=== PATIENT | female | born 1950 | race Caucasian/White ===

== ENCOUNTER 2020-08-06 11:39 | Outpatient (CLI) | payer MEDICARE, SELFPAY ==
--- NOTE | 2020-08-06 11:43 | MM_ITS ---
WS: [id number] BILATERAL DIGITAL SCREENING MAMMOGRAPHY WITH CAD CLINICAL INFORMATION: SCREENING HISTORY: Screening mammogram. No current complaints. COMPARISON: TECHNIQUE: Bilateral CC and MLO views. FINDINGS: Scattered fibroglandular densities bilaterally. A few tiny punctate calcifications right breast. No s uspicious focal mass, asymmetry, calcifications, or architectural distortion. No evidence of malignan cy. MM/[place] [id number] IMPRESSION: BI-RADS: 2-Benign FOLLOW UP: 1 Year Follow-up Recommend return to annual screening mammography.
== END 2020-08-06 11:40 | disposition home or self-care (01) ==
LOC: RADSHAW 11:42
PROVIDERS: PCP Internal Medicine; Visit Provider Internal Medicine
DX: Z12.31 Encounter for screening mammogram for malignant neoplasm of breast (principal)
CPT/HCPCS: 77067

== ENCOUNTER 2022-06-29 12:37 | Outpatient (CLI) | payer MEDICARE, SELFPAY ==
--- NOTE | 2022-06-29 12:55 | XR_ITS ---
WS: [id number] SCREENING DEXA SCAN Rösler miniDaT CLINICAL INFORMATION: OSTEOPOROSIS SCREENING COMPARISON: None. FINDINGS: The L1-L4 bone mineral density measures 1.186 g/cm2. This corresponds to a T score score of 0.0 and Z score of 2.2. Left femoral neck bone mineral density measures 1.001 g/cm2. This corresponds to a T score of -0.1 an d Z score of 1.9. Right femoral neck bone mineral density measures 0.931 g/cm2. This corresponds to a T score -0.6of an d Z score of 1.3. Mean femoral neck bone mineral density measures 0.966 g/cm2. This corresponds to a T score of -0.3 an d Z score of 1.6. XR/XR DEXA axial skeleton* 25702 IMPRESSION: Normal bone mineralization. Patient's FRAX calculated 10 year probability for major osteoporotic fracture i s 8.4 % and osteoporotic hip fracture is 1.1%.
== END 2022-06-29 12:38 | disposition home or self-care (01) ==
LOC: RAD 12:41
PROVIDERS: PCP Internal Medicine; Visit Provider Family Medicine
DX: M81.0 Age-related osteoporosis without current pathological fracture (principal)
CPT/HCPCS: 77080

== ENCOUNTER 2022-11-02 07:55 | Inpatient (IN) | payer MEDICARE, SELFPAY ==
[2022-11-02] VITALS (48 sets, daily range): BP systolic 100–158; BP diastolic 53–89; PULSE 51–86; RESP 14–25; TEMP 36.8; O2SAT 94–99; BMI 21.6
--- NOTE | 2022-11-02 08:35 | XR_ITS ---
WS: [id number] XR chest 1V portable [id number] REASON FOR EXAM: dyspnea/cough FINDINGS: The heart and mediastinum are within normal limits. Calcified granulomatous disease in both hemithoraces. No active pulmonary parenchymal or pleural disease. No significant abnormality of the bony thorax. XR/XR chest 1V portable [id number] IMPRESSION: No significant chest abnormality.
--- NOTE | 2022-11-02 08:36 | ECG_ITS ---
[facility] Test Date: 2022-11-02 Pat Name: Tayler Landry Department: Room: Gender: Female Reservationist: : 1950 Requested By: Oni Steinberg Order Number: [id number] Eb MD: Rosamaria Mack M.D. Measurements Intervals Colon Rate: 66 P: 70 MS: 165 QRS: 74 QRSD: 88 T: 95 QT: 400 QTc: 420 Interpretive Statements SINUS RHYTHM NONSPECIFIC ST & T-WAVE ABNORMALITY No previous ECG available for comparison Electronically Signed On 11-02-2022 13:01:02 CDT by Rosamaria Mack M.D. [email or web address] [email or web address].[employer]/store/[id number] f
[2022-11-02 08:54] LABS: Basophils % 0.6 %; Eosinophils # 0.1 10^3/uL (0.0-0.8); Eosinophils % 1.8 %; Hematocrit 44.7 % (37.0-47.0); Hemoglobin 14.6 g/dL (11.5-15.3); Lymphocytes # 1.1 10^3/uL (0.8-4.8); Lymphocytes % 16.5 %; Mean Corpuscular HGB Conc 32.7 g/dL (30.0-36.0); Mean Corpuscular Hemoglobin 30.4 pg (28.0-34.0); Mean Corpuscular Volume 93.1 fl (81-99); Mean Platelet Volume 8.9 fL (7.4-10.4); Monocytes # 0.4 10^3/uL (0.2-0.9); Monocytes % 6.6 %; Neutrophils # 4.95 10^3/uL (1.8-7.7); Neutrophils % 74.2 %; Nucleated Red Blood Cells % 0 %; Platelet Count 235 10^3/cmm (130-400); Red Cell Distribution Width 12.8 % (12.1-15.1); White Blood Count 6.7 10^3/uL (4.0-10.0)
[2022-11-02 09:08] LABS: D Dimer 0.39 ug/mIFEU (0-0.59)
[2022-11-02 09:18] LABS: Alanine Aminotransferase 18 U/L (0-33); Albumin Level 4.3 g/dL (3.5-5.2); Alkaline Phosphatase 113 U/L (35-105); Aspartate Amino Transferase 27 U/L (0-32); Blood Urea Nitrogen 21 mg/dL (8-23); Calcium 9.4 mg/dL (8.5-10.5); Carbon Dioxide 25 mmol/L (22-29); Chloride 102 mmol/L (98-107); Globulin 2.3 g/dL (1.3-4.6); Glucose 154 mg/dL (65-115); Osmolality Calculated 292 mOsm/kg (285-295); Sodium 138 mmol/L (136-145); Total Bilirubin 0.3 mg/dL (0.15-1.2); Total Protein 6.6 g/dL (6.6-8.7)
[2022-11-02 09:26] LABS: Anion Gap 15.2 (5-19); Potassium 4.2 mmol/L (3.5-5.1)
--- NOTE | 2022-11-02 09:28 | W.ED.CHESTPA ---
HPI - Chest Pain General: Chief Complaint: Chest Pain Stated Complaint: CP Time Seen by Provider: 11/02/22 08:01 Source: patient Mode of arrival: ambulatory History of Present Illness: 72-year-old female presents emergency room with complaints of intermittent chest pain and pressure for the last 3 to 4 days radiates into her arms. She has not previously had episodes of chest pain has no known history of coronary disease she has history of impaired glucose tolerance hypertension and hyperlipidemia. She does not take any anticoagulation or antiplatelet therapy. She has not noticed any association with exertion or rest. When I came to see her she said most of her pain had resolved but she had significant pain when she first arrived rating it 6 of 10. MD complaint: chest pain Pertinent past history: coronary artery disease Onset (ago): day(s) (3-4) Timing of current episode: episodic Onset: during rest Pain location: substernal Pain radiation: right arm and left arm Quality: tightness and heaviness Relieving factors: nothing Exacerbating factors: nothing Associated symptoms: Deny abdominal pain, diaphoresis, dyspnea, fever(s), leg edema, nausea, palpitations, sense of impending doom, syncope or vomiting Treatment prior to arrival: none Review of Systems Const: Denies: fever(s), chills or diaphoresis ENMT: Denies: throat pain, ear or mastoid pain, nasal discharge or nasal congestion Card: Reports: chest pain; Denies: palpitations or syncope Resp: Denies: dyspnea GI: Denies: abdominal pain, nausea or vomiting : Denies: flank pain, difficulty voiding, dysuria, urinary frequency or urinary urgency Musc: Reports: extremity pain; Denies: neck pain or back pain Skin/Breast: Denies: rash or pruritus Physical Exam Const: GENERAL APPEARANCE: cooperative and comfortable ORIENTATION/CONSCIOUSNESS: Yes awake, Yes oriented to person, Yes oriented to place and Yes oriented to time HENMT: COMMON NORMALS: normocephalic, atraumatic and hearing grossly normal bilaterally HEAD & SCALP: normocephalic and atraumatic Resp: COMMON NORMALS: normal respiratory effort, No retractions, No use of accessory muscles and clear to auscultation bilaterally AUSCULTATION: clear to auscultation bilaterally Cardio: COMMON NORMALS: regular rate, regular rhythm and No murmurs present (Cardio) RATE: regular rate RHYTHM: regular rhythm GI: COMMON NORMALS: Soft to palpation and No hepatosplenomegaly present AUSCULTATION: Yes normoactive bowel sounds PALPATION: Yes Soft to palpation, No Tenderness to palpation present (GI), No Guarding due to palpation present (GI) and Yes No hepatosplenomegaly present Extremity: COMMON NORMALS: normal to inspection, capillary refill normal, no clubbing, cyanosis or edema, no calf tenderness and no pedal edema Neuro: SENSORIUM/ORIENTATION: Yes oriented to person, Yes oriented to place and Yes oriented to time Skin: COMMON NORMALS: no rashes or lesions noted GENERAL SKIN EXAM: no rashes or lesions noted Course Vital Signs: Vital signs: Vital Signs Temperature 98.3 F 11/02/22 08:02 Pulse Rate 60 11/02/22 09:56 Respiratory Rate 18 11/02/22 09:56 Blood Pressure 140/73 11/02/22 09:56 Pulse Oximetry 96 11/02/22 09:56 Oxygen Delivery Me thod Room Air 11/02/22 08:02 MDM - Chest Pain Medical Decision Making Unstable angina with an elevated troponin of [address] changes noted on the first EKG when her troponin returned we repeated an EKG there is still nonspecific ST changes but no ST elevation. Contacted Dr. Ambriz he came and seen the patient in the ER and is. Seeing to the Safety Sealer. Admitted to Dr. Anne orders are written. Patient has been given Lovenox topical nitro and aspirin. Medical Records I reviewed the patient's medical records. Lab Data I reviewed the patient's lab results. 11/02/22 08:41 11/02/22 08:41 Radiology Impressions Chest X-Ray 11/02/22 08:35 IMPRESSION: No significant chest abnormality. Laboratory Results WBC 6.7 10^3/uL (4.0-10.0) 11/02/22 08:41 RBC 4.80 10^6/uL (4.1-5.3) 11/02/22 08:41 Hgb 14.6 g/dL (11.5-15.3) 11/02/22 08:41 Hct 44.7 % (37.0-47.0) 11/02/22 08:41 MCV 93.1 fl (81-99) 11/02/22 08:41 MCH 30.4 pg (28.0-34.0) 11/02/22 08:41 MCHC 32.7 g/dL (30.0-36.0) 11/02/22 08:41 RDW 12.8 % (12.1-15.1) 11/02/22 08:41 Plt Count 235 10^3/cmm (130-400) 11/02/22 08:41 MPV 8.9 fL (7.4-10.4) 11/02/22 08:41 Neut % (Auto) 74.2 % 11/02/22 08:41 Lymph % (Auto) 16.5 % 11/02/22 08:41 Titus % (Auto) 6.6 % 11/02/22 08:41 Eos % (Auto) 1.8 % 11/02/22 08:41 Baso % (Auto) 0.6 % 11/02/22 08:41 Neut # (Auto) 4.95 10^3/uL (1.8-7.7) 11/02/22 08:41 Lymph # (Auto) 1.1 10^3/uL (0.8-4.8) 11/02/22 08:41 Titus # (Auto) 0.4 10^3/uL (0.2-0.9) 11/02/22 08:41 Eos # (Auto) 0.1 10^3/uL (0.0-0.8) 11/02/22 08:41 Baso # (Auto) 0.0 10^3/uL (0.0-0.1) 11/02/22 08:41 Nucleated RBC % (auto) 0 % 11/02/22 08:41 Nucleated RBCs # 0.0 /100WBC 11/02/22 08:41 D-Dimer 0.39 ug/mIFEU (0-0.59) 11/02/22 08:41 Sodium 138 mmol/L (136-145) 11/02/22 08:41 Potassium 4.2 mmol/L (3.5-5.1) 11/02/22 08:41 Chloride 102 mmol/L (98-107) 11/02/22 08:41 Carbon Dioxide 25 mmol/L (22-29) 11/02/22 08:41 Anion Gap 15.2 (5-19) 11/02/22 08:41 BUN 21 mg/dL (8-23) 11/02/22 08:41 Creatinine 0.9 mg/dL (0.5-0.9) 11/02/22 08:41 GFR Calculation Not Reportable 11/02/22 08:41 Glucose 154 mg/dL (65-115) H 11/02/22 08:41 Calculated Osmolality 292 mOsm/kg (285-295) 11/02/22 08:41 Calcium 9.4 mg/dL (8.5-10.5) 11/02/22 08:41 Total Bilirubin 0.3 mg/dL (0.15-1.2) 11/02/22 08:41 AST 27 U/L (0-32) 11/02/22 08:41 ALT 18 U/L (0-33) 11/02/22 08:41 Alkaline Phosphatase 113 U/L (35-105) H 11/02/22 08:41 Troponin T Baseline 270 ng/L (0-10) H* 11/02/22 08:41 Total Protein 6.6 g/dL (6.6-8.7) 11/02/22 08:41 Albumin 4.3 g/dL (3.5-5.2) 11/02/22 08:41 Globulin 2.3 g/dL (1.3-4.6) 11/02/22 08:41 Discharge Plan Discharge Admit Provider: Franklyn Padilla Condition: Stable Coding Level of Care Code ED Senior Underwriting Assistant for Luis Pulliam
[2022-11-02 09:32] LABS: Troponin(5th) Baseline 270 ng/L (0-10)
--- NOTE | 2022-11-02 09:46 | ECG_ITS ---
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 Measurements Intervals [place] Rate: 61 P: 69 CT: 180 QRS: 75 QRSD: 86 T: 77 QT: 423 QTc: 428 Interpretive Statements SINUS RHYTHM NONSPECIFIC T-WAVE ABNORMALITY Compared to ECG 11/02/2022 08:01:33 No significant changes Electronically Signed On 11-02-2022 13:01:57 CDT by Rosamaria Mack M.D. [email or web address] issaquena community hospitalTapvalueregency [facility].[employer]/store/NU/[id number] f
[2022-11-02] MEDS: aspirin 81 mg Chew Tablet 324 MG PO (09:47)
[2022-11-02] MEDS: nitroglycerin 1 gm/inch oint Pkt 1 INCH TOPICAL (09:48)
[2022-11-02] MEDS: enoxaparin 80 mg/0.8 mL Syringe 70 MG SUBCUT (09:48)
--- NOTE | 2022-11-02 10:23 | XACV_ITS ---
Exam Room: [facility] Ht: 157 cm Wt: 49 kg BSA: 1.46 m2 Gender: Female : 1950 Any Known Allergies: No known allergies Exam Priority: Routine Procedure(s): Procedure Description: Diagnostic procedure Procedure Description: PCI procedure Procedure Description: Drug Eluting Coronary Stent Procedure Description: PTCA Procedure Description: Miscellaneous Procedure Description: ACT Procedure Description: Coronary Angiography Diagnostic Cath Status: Urgent Diagnostic Findings * Left Main has no significant disease. * Right Coronary Artery has no significant disease. * Mid Circumflex: Critical 99% stenosis , AI: 3 flow. This is a long lesion and in mid to distal vessel is about 70%. * INDICATION: NSTEMI. * Proximal Left Anterior Descending: moderate 50% stenosis, AI: 3 flow. * Coronary angiography shows right dominance. PCI Status: Urgent PCI Indication: NSTE - ACS Interventional Findings * PROCEDURE DETAIL: We engaged left main artery with XB 3.0 guide catheter. IV heparin was administered to maintain anticoagulation. 0.014 run-through guidewire was used to cross the stenosis and was put in distal vessel. We predilated the stenosis with 2.5 x 15 mm semicompliant balloon. This was followed by placement of 2.5 x 26 mm resolute Isabel drug-eluting stent in mid to distal vessel. Proximal to that stent we placed a second 2.75 x 18 mm resolute [place] drug-eluting stent. This overlapped with previously placed stent. At this time final angiogram was performed that showed excellent stent expansion, no residual stenosis and AI-3 flow. Guidewire and guide catheter were removed. Patient left the Lead Designer in a stable condition.. * Mid Circumflex: 99% stenosis treated with a AB TREK 2.50X15 RX BALLOON, SUSU Huertas ISABEL 2.5X26 JOSEFINA, and SUSU R ISABEL 2.75X18 JOSEFINA. 0% residual stenosis, AI: 3 flow. Conclusions 1. Critical mid left circumflex artery stenosis s/p successful revascularization with 2 stents. 2. Mid Circumflex was treated with a Balloon, Drug Eluting Stent, and Drug Eluting Stent. Recommendations * Transferred to cardiac stepdown unit. * Dual antiplatelet therapy with aspirin Plavix for at least 1 year. * High intensity statin therapy. * Order echocardiogram. * Outpatient cardiology follow-up in 4-week. * Has moderate proximal LAD stenosis. Will recommend outpatient stress test to assess for ischemia. Interventional RX Recommendation: PCI w/o planned CABG Diagnostic RX Recommendation: PCI w/o planned CABG Anticoagulation: Heparin Pressures Phase:Rest AO : 109 / 77 ( 93 ) @ 11:49:00 AM 91 / 65 ( 79 ) @ 11:50:00 AM 92 / 63 ( 79 ) @ 11:51:00 AM 68 / 42 ( 55 ) @ 11:52:00 AM 83 / 52 ( 67 ) @ 11:59:00 AM 84 / 53 ( 69 ) @ 12:02:00 PM 93 / 52 ( 72 ) @ 12:08:00 PM 94 / 54 ( 73 ) @ 12:09:00 PM 101 / 68 ( 84 ) @ 12:13:00 PM 109 / 72 ( 90 ) @ 12:13:00 PM 92 / 49 ( 69 ) @ 12:16:00 PM 110 / 46 ( 70 ) @ 12:18:00 PM Clinical Evaluation EBL: 5mL-10mL Procedural Details Admit Source: Emergency department. Procedure Consent Obtained. Pre-Procedure Time Out. Identified patient by full name and date of as verbalized by the patient/guarantor. Does the consent match the physician's order: Yes. Accurate & Complete Informed Consent: Yes. Inpatient/Outpatient History & Physical on Chart: Yes. If H&P is completed, is and addenduem needed: No; If yes, is the addendum complete: N/A. Visualize and Verify Site with Patient/Guarantor: N/A. Relevant Radiology Images available: Yes. The risks, benefits, and alternatives of sedation and/or procedure were discussed by physician. The patient agrees to continue. Procedure started. [facility] Clinical Fraility Score: 3: Managing Well. Lead Designer Indications: ACS > 24 hours. Chest Pain Symptom Assessment: Typical Angina Symptoms. Correct patient, site and procedure confirmed by cath team. Current diagnosis: NSTEMI. PERRLA. Strong, equal hand training mgr bilaterally. Lungs clear x 5 lobes. IV Site on Arrival: 20 gauge in the left anticubital. IV Fluids: 0.9% NaCl at KVO. 0 mL infused prior to laborer pole crew. Pre Procedural Pulses: right radial was 3+. Oxygen started at 2liters/min via nasal canula. right radial was prepped with chloroprep then draped in the usual sterile fashion. right groin was prepped with chloroprep then draped in the usual sterile fashion. Baseline sample Acquired. HR: 61 BPM. Physician arrived. Physician scrubbed in. Immediate Pre-Procedure Time Out. Correct Patient: Yes; Correct Procedure: Yes; Correct Site: Yes; Correct Patient Position: Yes; Correct Supplies: Yes; Dried Flammable Prep: Yes; Blood Products Available: N/A;. Lidocaine 1% infiltrated to the right radial. Arterial access obtained. A 5 algerian TIG catheter in over wire. Multiple views taken of left coronary artery. Catheter redirected to the RCA. Multiple views taken of right coronary artery. Catheter removed over the exchange wire. ACT drawn. Results 275 seconds. Therapeutic limits - pre-heparin administration 90-150 seconds and monitoring heparin during a vascular procedure >250 seconds. 6 algerian XB 3 guide catheter was inserted over the wire. Guide catheter out over the wire. 6 algerian XB 3 guide catheter was inserted over the wire. Runthrough guidewire was advanced through the guide catheter to lesion in the mid Circ. Inflation number : 1 A AB TREK 2.50X15 RX BALLOON was prepped and advanced across the Mid CX , then inflated to 8 POLO for 0:17 seconds. Inflation number: 2 The AB TREK 2.50X15 RX BALLOON was reinflated across the Mid CX, to 10 POLO for 0:13 seconds. Inflation number: 3 The AB TREK 2.50X15 RX BALLOON was reinflated across the Mid CX, to 12 POLO for 0:21 seconds. Balloon out. Inflation Number : 4 A SUSU Huertas ISABEL 2.5X26 JOSEFINA -Lot Number# [id number] exp: 11/24/2023 was prepped and advanced across the Mid CX. The stent was deployed at 12 POLO for 0:23 seconds. Stent balloon out over wire. Inflation Number : 5 A SUSU Huertas ISABEL 2.75X18 JOSEFINA -Lot Number# ___[id number] exp: 11/30/2023 was prepped and advanced across the Mid CX. The stent was deployed at 12 POLO for 0:18 seconds. Stent balloon out over wire. Results checked. Wire out. Guide catheter out. ACT drawn. Results 387 seconds. Therapeutic limits - pre-heparin administration 90-150 seconds and monitoring heparin during a vascular procedure >250 seconds. A TR Band was successful obtaining hemostatsis at the Right Radial artery insertion site. Post Procedure: Pulses reassessed and unchanged. PERRLA. Strong, equal hand training mgr bilaterally. No VTE prophylaxis required. Medication's Wasted: Lidocaine 1% = 2 mL. Medication's Wasted: Nitro = 49.4 mg. Medication's Wasted: Other = Fentanyl 25 mcg. Total IV fluids: 284 mL. Complications: none. Estimated blood loss: 5mL-10mL. Responsiveness - Normal response to verbal stimuli; alert and oriented, PERRLA. Airway - Unaffected, no intervention required; spontaneous ventilation. Circulation: W/N/L, pulses unchanged. Nausea/Vomiting: No. Procedure completed. Patient transferred by wheelchair to 1st floor. Access Site Site: Right Radial artery Sheath Size: 6 Fr Hemostasis Method: TR Band Hemostasis Success: Successful Procedure Medications Start: 10:44 AM Stop: 10:44 AM Medication: Versed 1 mg and Fentanyl 25 mcg Amount: 1 Route: I.V. Start: 10:47 AM Stop: 10:47 AM Medication: Nitrogylcerin Amount: 200 mcg Route: I.A. Start: 10:48 AM Stop: 10:48 AM Medication: Heparin Amount: 4000 units Route: I.V. Start: 10:52 AM Stop: 10:52 AM Medication: Versed Amount: 1 mg Route: I.V. Start: 10:54 AM Stop: 10:54 AM Medication: Nitrogylcerin Amount: 200 mcg Route: I.A. Start: 10:55 AM Stop: 10:55 AM Medication: 0.9% Saline Amount: 250 ml Route: I.V. bolus Start: 10:56 AM Stop: 10:56 AM Medication: Fentanyl Amount: 25 mcg Route: I.V. Start: 11:05 AM Stop: 11:05 AM Medication: Heparin Amount: 1000 units Route: I.V. Start: 11:15 AM Stop: 11:15 AM Medication: Nitrogylcerin Amount: 200 mcg Route: I.C. Start: 11:19 AM Stop: 11:19 AM Medication: Fentanyl Amount: 25 mcg Route: I.V. Start: 11:20 AM Stop: 11:20 AM Medication: Plavix Amount: 600 mg I, the attending physician, have reviewed and verified all procedure medications. Yes, all medications given per verbal order History/Risk Factors Hypertension: Yes Dyslipidemia: No Peripheral Arterial Disease (PAD): No Myocardial Infarction (MN): No Obesity: No Renal Disease: No Tobacco Use: Never Prior Interventions PCI: No CABG: No Valve Surgery: No Report Signatures Finalized by Jr Ambriz MD on 11/02/2022 06:02 PM
--- NOTE | 2022-11-02 10:23 | P.CONIM_ITS ---
Providers/Reason For Consult Consulting Physician/Specialty*: Jr Ambriz MD/ Cardiology Reason for Consult*: NSTEMI Requesting Physician: Dr Weiss Attending Physician: Franklyn Padilla MD Primary Care Provider: Sid Reynoso MD History of Present Illness History of Present Illness Sylvia Landry is a 72 year old female with past medical history of diabetes that is diet-controlled, hypertension who has been having on and off chest pain for last 3 to 4 days. It is substernal and severe. It radiates to arms and jaw. EKG shows normal sinus rhythm with no significant ST-T wave changes. However initial troponin is elevated at 270. No prior cardiac history. Review of Systems Narrative: CONSTITUTIONAL: No fever chills weight loss or gain or night sweats. [] HEENT: Normocephalic, atraumatic.[] RESPIRATORY: No cough, sputum, hemoptysis or wheezing.[] CARDIOVASCULAR: Has chest pain GI: no nausea vomiting diarrhea. [] BRASS SORTER: No numbness, tingling, weakness or loss of function in any part of the body. [] MUSCULOSKELETAL: No knee or joint pain or rashes. [] Medications/Allergies Home Medications Medication Instructions Recorded Confirmed Last Taken Type Lactobacillus acidophilus 10 10,000 mmu cells PO DAILY 11/02/22 11/02/22 11/01/22 History billion cell capsule (Probiotic) atorvastatin 10 mg tablet 10 mg PO QPM 11/02/22 11/02/22 11/01/22 History biotin 5 mg tablet 5 mg PO DAILY 11/02/22 11/02/22 11/01/22 History cranberry 400 mg capsule 400 mg PO DAILY 11/02/22 11/02/22 11/01/22 History losartan 25 mg tablet 25 mg PO BID 11/02/22 11/02/22 11/01/22 History multivitamin 1 tab PO DAILY 11/02/22 11/02/22 11/01/22 History plant stanol lien 450 mg tablet 450 mg PO DAILY 11/02/22 11/02/22 11/01/22 History trazodone 150 mg tablet 150 mg PO QPM 11/02/22 11/02/22 11/01/22 History vitamin B complex 1 tab PO DAILY 11/02/22 11/02/22 11/01/22 History Allergies Allergy/AdvReac Type Severity Reaction Status Date / Time No Known Allergies Allergy Verified 11/02/22 09:42 PFSH Acute PFSH: Medical History Diabetes Hypertension Vitals/I&O/Wt Last Vital Signs Temp 98.3 F 11/02/22 08:02 Pulse 60 11/02/22 09:56 Resp 18 11/02/22 09:56 BP 140/73 11/02/22 09:56 Pulse Ox 96 11/02/22 09:56 O2 Del Method Room Air 11/02/22 08:02 Weight last 48 hrs Weight 108 lb Physical Exam Narrative: GENERAL: Patient is alert, awake and oriented x3. [] NECK: No jugular vein distension. [] HEENT: No cyanosis. No icterus. No pallor. [] HEART: Regular S1 and S2. No murmur, rub or gallop. [] LUNGS: Clear to auscultate bilaterally. [] CENTRAL NERVOUS SYSTEM: Grossly nonfocal. [] EXTREMITIES: Lower extremities with no edema bilaterally. Pulses palpable in the lower extremities, both dorsalis pedis and posterior tibial. [] Data 11/02/22 08:41 11/02/22 08:41 A&P Assessment and plan (1) NSTEMI (non-ST elevated myocardial infarction): (2) Diabetes: (3) Hypertension: Plan Patient has presented with worsening angina for 3 to 4 days and elevated troponins consistent with non-ST elevation PR. We will proceed with coronary angiogram with possible percutaneous coronary intervention. Risks and benefits of the procedure have been discussed with the patient. She understands the risks and benefits and wants to proceed with it. Keep NPO. She has received aspirin. Continue anticoagulation. We will order echocardiogram. Thank you for involving us with care of this patient. We will continue to follow. Please call with questions. Consult Attestations Medical Necessity Statement: Care not expected to cross 2 midnights. Coding Level of Care Code Acute Code for [facility] Diagnoses NSTEMI (non-ST elevated myocardial infarction) I21.4 Diabetes E11.9 Hypertension I10
--- NOTE | 2022-11-02 10:40 | W.PM.OPSUD ---
Surgery/Procedure H&P Update DATE OF PROCEDURE: November 02, 2022 DATE H&P PERFORMED: 11/02/22 H&P UPDATE INFORMATION: I have reviewed H&P completed within last 30 days, I have examined patient prior to procedure and No changes to prior documentation PREOP DIAGNOSIS: NSTEMI PRIMARY INDICATION FOR PROCEDURE: NSTEMI PLANNED PROCEDURE: Left heart cath with possible percataneous coronary intervention PATIENT REASSESSED PRIOR TO SEDATION, WITH NO CHANGE NOTED: Yes PHYSICAL EXAM: alert, oriented x 3, clear to auscultation bilaterally and regular rate & rhythm AIRWAY EVAL/ANESTHESIA PLAN: normal airway, ASA III, Local Anesthesia, Risks, benefits & alternatives of sedation and/or procedure discussed and Patient agrees to continue as planned ADDITIONAL INFORMATION: Moderate sedation
--- NOTE | 2022-11-02 11:35 | PC.NURSE ---
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 Patient has a TR band to the right wrist, no hematoma present. Patient was able to ambulate to bed without difficulty. Patient placed on cardiac, bp and SpO2 monitoring. See physical assessment, post laborer [employer] flow sheets for details.
--- NOTE | 2022-11-02 12:30 | PC.NURSE ---
3 ml removed from TR band. No hematoma present.
--- NOTE | 2022-11-02 12:45 | PC.NURSE ---
3 mL removed from TR band. No hematoma present.
--- NOTE | 2022-11-02 12:53 | USCV_ITS ---
Sylvia Landry Age: 72 Gender: F : 1950 Exam Date: 11/02/2022 14:03 Ordering Phys: Franklyn Padilla MD Technologist: Rj Cartagena Exam Location: [facility] [place] Indication: nstemi BP: 119 / 66 HR: 72 Rhythm: Sinus Technical Quality: Adequate MEASUREMENTS (Male / Female) Normal Values 2D ECHO LV Diastolic Diameter PLAX 3.3 cm 4.2 - 5.9 / 3.9 - 5.3 cm LV Systolic Diameter PLAX 1.9 cm IVS Diastolic Thickness 0.8 cm 0.6 - 1.0 / 0.6 - 0.9 cm IVS Systolic Thickness 1.3 cm LVPW Diastolic Thickness 1.1 cm 0.6 - 1.0 / 0.6 - 0.9 cm LVPW Systolic Thickness 1.2 cm LVOT Diameter 1.4 cm LV Ejection Fraction 2D Teich 74.0 % LV Ejection Fraction MOD 2C 79.4 % LV Ejection Fraction 2C AL 78.7 % LA Diameter 2.9 cm IVC Diameter 0.9 cm M-MODE Aortic Annulus Diameter 2.7 cm LA Ao Ratio MM 1.1 MV E Point Septal Separation 0.8 cm DOPPLER AV Peak Velocity 127.0 cm/s LVOT Peak Velocity 89.0 cm/s AV Area Cont Eq vti 1.0 cm squared AV Area Cont Eq pk 1.1 cm squared MV Area PHT 5.0 cm squared Mitral E to A Ratio 0.8 MV E' Velocity 40.0 cm/s Mitral E to MV E' Ratio 8.4 Mitral E to LV E' Lateral Ratio 9.2 Mitral E to LV E' Septal Ratio 7.7 TR Peak Velocity 403.3 cm/s TR Peak Gradient 65.1 mmHg TV Peak E Velocity 88.0 cm/s Right Atrial Pressure 3.0 mmHg Pulmonary Artery Systolic Pressu 68.1 mmHg RV Acceleration Time 0.1 s FINDINGS Left Ventricle Left ventricle normal in size. LV systolic function is normal with EF of 60 to 65%. No regional wall motion abnormalities are seen. Grade 1 diastolic dysfunction Right Ventricle Normal in size and function Right Atrium Normal in size Left Atrium Normal in size Mitral Valve Structurally normal mitral valve. Mild mitral regurgitation. Aortic Valve Structurally normal aortic valve. No significant stenosis or regurgitation is seen. Tricuspid Valve Mild mitral regurgitation. Pulmonic Valve Not well visualized Pericardium Normal Aorta Normal in size IVC Appears to be normal CONCLUSIONS LV systolic function is normal with EF of 60 to 65%. Grade 1 diastolic dysfunction Mild mitral regurgitation No comparison studies are available Jr Ambriz MD (Electronically Signed) Final Date: 02 November 2022 17:50 S
--- NOTE | 2022-11-02 12:54 | P.HP_ITS ---
Providers/Chief Complaint Admitting Physician: Franklyn Padilla MD Primary Care Provider: Sid Reynoso MD Chief Complaint: CP History of Present Illness Sylvia Landry is a 72 year old female with past medical history of prediabetes, hypertension who presents to the ER today with ongoing chest pain which is retrosternal radiated to bilateral arms into the office today morning. Patient was having slight chest pain last night as well for which she took ibuprofen. As per patient she has been having some chest heaviness with chest discomfort on exertion for last 3 to 4 days. In the ER she was found to have non-ST elevation MD. Cardiology was consulted and she was taken to cardiac Clinical Sociologist. She was found to have single-vessel disease and she underwent PCI with JOSEFINA x2 to LCx.(Full cath report not currently available to me.) Post PCI and seen in cardiac stepdown unit patient was laying comfortably in bed. Denies any nausea, vomiting, headache. Denies any focal chest pain. Complaining of pain in the hand because of Thera-Band post angiogram. Blood work appreciated. Patient is a non-smoker without significant family history of CAD or ACS. Review of Systems General: Reports: 10 or more systems reviewed and unremarkable except in HPI and below Const: Denies: fever(s), chills, body aches, change in appetite, change in weight, malaise, night sweats, diaphoresis, change in sleep pattern, daytime sleepiness or snoring Eyes: Denies: change in vision, blurry vision, photophobia, eye discomfort or eye discharge ENMT: Denies: throat pain, enlarged tonsils, hoarseness, mouth pain, oral sores, dry mouth, tinnitus, nasal congestion or post nasal drip Card: Denies: chest pain, palpitations, irregular heart rhythm, edema, swelling of feet/ankles, lightheadedness, syncope, pre-syncope, dyspnea on exertion, orthopnea, leg pain with exertion or acrocyanosis Resp: Denies: dyspnea, productive cough, non-productive cough, wheezing, stridor, pain on inspiration, change in phlegm color, hemoptysis or chest congestion GI: Denies: abdominal pain, nausea, vomiting, hematemesis, coffee ground emesis, dysphagia, heartburn, diarrhea, constipation, bloating, GI cramping, change in bowel habits, pain on defecation, hematochezia or melena : Denies: flank pain, dysuria, urinary frequency, urinary urgency, urinary hesitancy, nocturia or hematuria Musc: Denies: neck pain, back pain, extremity pain, joint pain, joint swelling, joint redness, joint stiffness or limited range of motion Neuro: Denies: headache(s), numbness in extremities, weakness in extremities, sensory changes, lack of coordination, difficulty walking, frequent falls, dizziness, vertigo, confusion, Slurred speech present, difficulty communicating thoughts or seizure-like activity Psych: Denies: anxiety, depression, mood swings, panic attacks, hopelessness or irritability Endo: Denies: polyuria, polydipsia, tired all the time, cold intolerance, excessive sweating, flushing or heat intolerance Magdaleno/Lymph: Denies: easy bruising or easy bleeding All/Imm: Denies: tongue swelling, facial swelling or acute wheezing Medications/Allergies Home Medications Medication Instructions Recorded Confirmed Last Taken Type Lactobacillus acidophilus 10 10,000 mmu cells PO DAILY 11/02/22 11/02/22 11/01/22 History billion cell capsule (Probiotic) atorvastatin 10 mg tablet 10 mg PO QPM 11/02/22 11/02/22 11/01/22 History biotin 5 mg tablet 5 mg PO DAILY 11/02/22 11/02/22 11/01/22 History cranberry 400 mg capsule 400 mg PO DAILY 11/02/22 11/02/22 11/01/22 History losartan 25 mg tablet 25 mg PO BID 11/02/22 11/02/22 11/01/22 History multivitamin 1 tab PO DAILY 11/02/22 11/02/22 11/01/22 History plant stanol lien 450 mg tablet 450 mg PO DAILY 11/02/22 11/02/22 11/01/22 History trazodone 150 mg tablet 150 mg PO QPM 11/02/22 11/02/22 11/01/22 History vitamin B complex 1 tab PO DAILY 11/02/22 11/02/22 11/01/22 History Allergies Allergy/AdvReac Type Severity Reaction Status Date / Time No Known Allergies Allergy Verified 11/02/22 09:42 PFSH Acute PFSH: Medical History (Updated 11/02/22 @ 12:56 by Franklyn Padilla MD) Hypertension Prediabetes Surgical History (Updated 11/02/22 @ 12:56 by Franklyn Padilla MD) History of appendectomy History of tubal ligation Family History (Updated 11/02/22 @ 12:56 by Franklyn Padilla MD) Other Cancer Social History (Updated 11/02/22 @ 12:57 by Franklyn Padilla MD) Smoking and tobacco status: never smoked Alcohol intake: never Substance/Drug Use: never Adopted: No Caregiver/support person: Yes Lives independently: Yes Household members: spouse Housing: House Vitals/I&O/Wt Last Vital Signs Temp 98.3 F 11/02/22 08:02 Pulse 54 L 11/02/22 12:15 Resp 17 11/02/22 12:15 BP 106/58 11/02/22 12:15 Pulse Ox 97 11/02/22 12:15 O2 Del Method Room Air 11/02/22 08:02 11/01/22 11/02/22 11/02/22 22:59 06:59 14:59 Intake Total 720 / 720 Balance 720 / 720 Weight last 48 hrs Weight 51.891 kg Weight 48.988 kg Physical Exam Narrative: General: No acute distress, AO x3 HEENT: PERRLA, pupils bilaterally equal and reactive Chest: Normal vesicular breath sounds, no added sounds, equal good air entry bilaterally CVS: S1-S2 regular, no murmurs, no tachycardia, no gallops, no rubs Abdomen: Soft, nontender, no organomegaly, bowel sounds present Neuro: No focal deficits, no facial deformity, AO x3, power 5/5 in all limbs Data 11/02/22 08:41 11/02/22 08:41 A&P Assessment and plan (1) NSTEMI (non-ST elevated myocardial infarction): Post PCI to LCx. Appreciate cardiology recommendations. Continue with aspirin, Plavix, statin. Check A1c, lipid panel, echocardiogram. Patient slightly bradycardic. Will start on low-dose beta-amena 12.5 mg twice daily. (2) Prediabetes: Check A1c. For sliding scale at low-dose protocol. (3) Hypertension: Goal blood pressure less than 140/90 mmHg. Takes losartan at home. For now holding off starting on low-dose beta-amena. If blood pressure allows will restart losartan. Plan Full code. Cardiac diet. Heparin for DVT prophylaxis. Protonix for PUD prophylaxis. Attestations Medical Necessity Statement*: Admission for more than 2 midnights for management of non-ST elevation MD. Diagnoses NSTEMI (non-ST elevated myocardial infarction) I21.4 Prediabetes R73.03 Hypertension I10
--- NOTE | 2022-11-02 13:00 | PC.NURSE ---
3 mL removed from TR band. No hematoma present.
[2022-11-02 13:05] LABS: Thyroid Stimulating Hormone 2.03 uIU/mL (0.27-4.20)
--- NOTE | 2022-11-02 13:30 | PC.NURSE ---
3 ml of air removed from TR band. No hematoma present.
[2022-11-02] MEDS: sodium chloride 0.9% 1,000 ML 100 ML IV (13:54)
[2022-11-02 14:10] LABS: Procalcitonin 0.05 ng/mL (0-0.5)
--- NOTE | 2022-11-02 14:45 | PC.NURSE ---
Removed the last amount of air in TR band. Upon removal, site did start bleeding. Manual pressure held. Bleeding stopped. Right wrist wrapped with pressure dressing. Right hand is warm, no numbness or tingling noted.
[2022-11-02 14:46] LABS: Vitamin B12 544 pg/mL (232-1245)
[2022-11-02 15:01] LABS: Add Urine Microscopic? NO; Charge for UA Resulting for Rev
[2022-11-02 15:08] LABS: Bilirubin Urine Neg (Negative); Blood Urine Neg (Negative); Glucose Urine UA 1+ (Normal); Ketones Urine 1+ (Negative); Leukocyte Esterase Urine Negative (Negative); Nitrate Urine Negative (Negative); Protein Urine Neg (Negative); Urine Appearance Clear (CLEAR); Urine Color Light yellow (Yellow); Urobilinogen Urine Norm (Negative); pH Urine 7 (5-7)
[2022-11-02 15:23] LABS: Troponin 5 6HR 445.5 ng/L (0-10)
[2022-11-02 15:24] LABS: Troponin 5 6HR Delta 175.5 ng/L (0-12)
--- NOTE | 2022-11-02 15:34 | ECG_ITS ---
[facility] Test Date: 2022-11-02 Pat Name: Sylvai Landry Department: Room: 104 Gender: Female Simulation Developer: : 1950 Requested By: nOi Steinberg Order Number: [id number] MD: Rosamaria Mack M.D. Measurements Intervals [place] Rate: 60 P: 63 NE: 177 QRS: 72 QRSD: 80 T: 89 QT: 377 QTc: 377 Interpretive Statements SINUS RHYTHM WITH SINUS ARRHYTHMIA NONSPECIFIC ST & T-WAVE ABNORMALITY Compared to ECG 11/02/2022 09:46:27 No significant changes Electronically Signed On 11-02-2022 16:34:42 CDT by Rosamaria Mack M.D. [email or web address]
[2022-11-02] MEDS: metoprolol tartrate 25 mg Tablet 12.5 MG PO (18:25)
[2022-11-02] MEDS: atorvastatin 40 mg Tablet PO (20:54)
[2022-11-03] VITALS: BP 122/66; PULSE 76; RESP 19; TEMP 36.7; O2SAT 96
[2022-11-03 04:00] VITALS: BP 130/78; PULSE 83; RESP 17; TEMP 36.9; O2SAT 95
[2022-11-03 05:39] LABS: Basophils % 0.3 %; Eosinophils # 0.2 10^3/uL (0.0-0.8); Eosinophils % 1.7 %; Hematocrit 41.1 % (37.0-47.0); Lymphocytes # 1.3 10^3/uL (0.8-4.8); Mean Corpuscular HGB Conc 31.6 g/dL (30.0-36.0); Mean Corpuscular Hemoglobin 29.3 pg (28.0-34.0); Mean Corpuscular Volume 92.8 fl (81-99); Monocytes # 0.7 10^3/uL (0.2-0.9); Monocytes % 7.2 %; Neutrophils # 6.85 10^3/uL (1.8-7.7); Neutrophils % 76.5 %; Nucleated Red Blood Cells % 0 %; Platelet Count 252 10^3/cmm (130-400); Red Blood Count 4.43 10^6/uL (4.1-5.3)
[2022-11-03 05:50] LABS: Estmated Average Glucose 143; Hemoglobin A1C 6.6 % (4.0-6.0)
[2022-11-03 05:54] LABS: Alanine Aminotransferase 17 U/L (0-33); Albumin Level 3.8 g/dL (3.5-5.2); Alkaline Phosphatase 101 U/L (35-105); Anion Gap 15.2 (5-19); Aspartate Amino Transferase 30 U/L (0-32); Blood Urea Nitrogen 19 mg/dL (8-23); Calcium 9.1 mg/dL (8.5-10.5); Carbon Dioxide 24 mmol/L (22-29); Chloride 103 mmol/L (98-107); Cholesterol 147 mg/dL (0-200); Globulin 2.2 g/dL (1.3-4.6); Glucose 129 mg/dL (65-115); HDL Cholesterol 70 mg/dL (60-100); LDL Cholesterol Calculated 58 mg/dL (50-129); LDL HDL Ratio 0.83 RATIO (0.00-3.22); Magnesium 1.7 mg/dL (1.7-2.3); Osmolality Calculated 290 mOsm/kg (285-295); Phosphorus 3.2 mg/dL (2.5-4.5); Potassium 4.2 mmol/L (3.5-5.1); Sodium 138 mmol/L (136-145); Total Bilirubin 0.5 mg/dL (0.15-1.2); Triglycerides 95 mg/dL (0-150)
[2022-11-03 06:00] VITALS: PULSE 104
[2022-11-03 06:25] LABS: Folate Level > 20.0 ng/mL (4.8-37.3)
--- NOTE | 2022-11-03 07:21 | PM.PN ---
Subjective Subjective: Patient is doing well. no chest pain. no shortness of breath. Echo shows normal LV systolic function. She had critical lcx atery stenosis and underwent PCI with 2 stents. Vitals/I&O/Wt Last Vital Signs Temp 98.5 F 11/03/22 04:00 Pulse 104 H 11/03/22 06:00 Resp 17 11/03/22 04:00 BP 130/78 11/03/22 04:00 Pulse Ox 95 11/03/22 04:00 O2 Del Method Room Air 11/03/22 04:00 11/02/22 11/03/22 11/03/22 22:59 06:59 14:59 Intake Total 1120 / 1840 Balance 1120 / 1840 Weight last 48 hrs Weight 114 lb 6.4 oz Weight 108 lb Physical Exam Narrative: GENERAL: Patient is alert, awake and oriented x3. [] NECK: No jugular vein distension. [] HEENT: No cyanosis. No icterus. No pallor. [] HEART: Regular S1 and S2. No murmur, rub or gallop. [] LUNGS: Clear to auscultate bilaterally. [] CENTRAL NERVOUS SYSTEM: Grossly nonfocal. [] EXTREMITIES: Lower extremities with no edema bilaterally. Pulses palpable in the lower extremities, both dorsalis pedis and posterior tibial. [] Data 11/03/22 04:41 11/03/22 04:41 A&P Assessment and plan (1) NSTEMI (non-ST elevated myocardial infarction): (2) Diabetes: (3) Hypertension: Plan Patient is presented with non-ST elevation RI and underwent successful revascularization of critical left circumflex artery stenosis with 2 stents yesterday. She has done well. Continue dual antiplatelet therapy with aspirin Plavix for at least 1 year Echo shows normal LV systolic function. High intensity statin therapy. Low-dose beta-amena. Thank you for involving us with care of this patient. Patient is stable to be discharged from cardiology standpoint. Please call with questions. Attestations Medical Necessity Statement*: Care expected to cross 2 midnights. Coding Level of Care Code Acute Code for [facility] Diagnoses NSTEMI (non-ST elevated myocardial infarction) I21.4 Diabetes E11.9 Hypertension I10
[2022-11-03 08:00] VITALS: BP 149/74; PULSE 73; RESP 16; TEMP 36.6; O2SAT 98
[2022-11-03] MEDS: aspirin 81 mg EC Tablet PO (08:12)
[2022-11-03] MEDS: clopidogrel 75 mg Tablet PO (08:12)
[2022-11-03] MEDS: pantoprazole DR 40 mg Tablet PO (08:12)
[2022-11-03] MEDS: metoprolol tartrate 25 mg Tablet 12.5 MG PO (08:14)
--- NOTE | 2022-11-03 10:19 | PM.DCS ---
Discharge Providers Date of Admission: 11/02/22 11:26 Date of Discharge: November 03, 2022 Attending Provider at Admission: Franklyn Padilla MD Attending Provider at Discharge: Franklyn Padilla MD Consults: Cardiology: Dr. Ambriz Primary Care Provider: Sid Reynoso MD Diagnoses at Discharge Discharge Diagnosis (1) NSTEMI (non-ST elevated myocardial infarction): Status: Acute (2) Diabetes: Status: Deleted (3) Hypertension: Status: Acute Reason for Visit Reason for Visit: CP Hospital Course Hospital Course Sylvia Landry is a 72 year old female with past medical history of prediabetes, hypertension who presents to the ER today with ongoing chest pain which is retrosternal radiated to bilateral arms into the office today morning.? Patient was having slight chest pain last night as well for which she took ibuprofen.? As per patient she has been having some chest heaviness with chest discomfort on exertion for last 3 to 4 days.? In the ER she was found to have non-ST elevation MD.? Cardiology was consulted and she was taken to cardiac [facility] [facility].? She was found to have single-vessel disease and she underwent PCI with JOSEFINA x2 to LCx.(Full cath report not currently available to me.) Patient tolerated the procedure well and remained chest pain-free during hospitalization. Remained hemodynamically stable. Blood work is consistent with mild dyslipidemia and early type 2 diabetes mellitus. She has been discharged in hemodynamically stable condition to follow-up with primary care provider within next 1 week and nurse petitioner from cardiology within next 1 week. Physical Exam Narrative: General: No acute distress, AO x3 HEENT: PERRLA, pupils bilaterally equal and reactive Chest: Normal vesicular breath sounds, no added sounds, equal good air entry bilaterally CVS: S1-S2 regular, no murmurs, no tachycardia, no gallops, no rubs Abdomen: Soft, nontender, no organomegaly, bowel sounds present Neuro: No focal deficits, no facial deformity, AO x3, power 5/5 in all limbs Discharge Data Studies Completed and Pending Completed Studies During Hospitalization Category Date Time Status [facility] INTERVIEWS INTERN request for service Routine Exams 11/02/22 10:23 Completed XR chest 1V portable [id number] Stat Exams 11/02/22 08:35 Completed CV. echo complete* [id number] Routine Ultrasound 11/02/22 12:53 Completed Radiology Impressions Chest X-Ray 11/02/22 08:35 IMPRESSION: No significant chest abnormality. Laboratory Results WBC 9.0 10^3/uL (4.0-10.0) 11/03/22 04:41 RBC 4.43 10^6/uL (4.1-5.3) 11/03/22 04:41 Hgb 13.0 g/dL (11.5-15.3) 11/03/22 04:41 Hct 41.1 % (37.0-47.0) 11/03/22 04:41 MCV 92.8 fl (81-99) 11/03/22 04:41 MCH 29.3 pg (28.0-34.0) 11/03/22 04:41 MCHC 31.6 g/dL (30.0-36.0) 11/03/22 04:41 RDW 13.0 % (12.1-15.1) 11/03/22 04:41 Plt Count 252 10^3/cmm (130-400) 11/03/22 04:41 MPV 9.0 fL (7.4-10.4) 11/03/22 04:41 Neut % (Auto) 76.5 % 11/03/22 04:41 Lymph % (Auto) 14.0 % 11/03/22 04:41 Falls % (Auto) 7.2 % 11/03/22 04:41 Eos % (Auto) 1.7 % 11/03/22 04:41 Baso % (Auto) 0.3 % 11/03/22 04:41 Neut # (Auto) 6.85 10^3/uL (1.8-7.7) 11/03/22 04:41 Lymph # (Auto) 1.3 10^3/uL (0.8-4.8) 11/03/22 04:41 Falls # (Auto) 0.7 10^3/uL (0.2-0.9) 11/03/22 04:41 Eos # (Auto) 0.2 10^3/uL (0.0-0.8) 11/03/22 04:41 Baso # (Auto) 0.0 10^3/uL (0.0-0.1) 11/03/22 04:41 Nucleated RBC % (auto) 0 % 11/03/22 04:41 Nucleated RBCs # 0.0 /100WBC 11/03/22 04:41 D-Dimer 0.39 ug/mIFEU (0-0.59) 11/02/22 08:41 Sodium 138 mmol/L (136-145) 11/03/22 04:41 Potassium 4.2 mmol/L (3.5-5.1) 11/03/22 04:41 Chloride 103 mmol/L (98-107) 11/03/22 04:41 Carbon Dioxide 24 mmol/L (22-29) 11/03/22 04:41 Anion Gap 15.2 (5-19) 11/03/22 04:41 BUN 19 mg/dL (8-23) 11/03/22 04:41 Creatinine 0.9 mg/dL (0.5-0.9) 11/03/22 04:41 GFR Calculation Not Reportable 11/03/22 04:41 Glucose 129 mg/dL (65-115) H 11/03/22 04:41 Estimat Average Glucose 143 11/03/22 04:41 Hemoglobin A1c 6.6 % (4.0-6.0) H 11/03/22 04:41 Calculated Osmolality 290 mOsm/kg (285-295) 11/03/22 04:41 Calcium 9.1 mg/dL (8.5-10.5) 11/03/22 04:41 Phosphorus 3.2 mg/dL (2.5-4.5) 11/03/22 04:41 Magnesium 1.7 mg/dL (1.7-2.3) 11/03/22 04:41 Total Bilirubin 0.5 mg/dL (0.15-1.2) 11/03/22 04:41 AST 30 U/L (0-32) 11/03/22 04:41 ALT 17 U/L (0-33) 11/03/22 04:41 Alkaline Phosphatase 101 U/L (35-105) 11/03/22 04:41 Troponin T Baseline 270 ng/L (0-10) H* 11/02/22 08:41 Troponin T Hi Sens 6Hr 445.5 ng/L (0-10) H 11/02/22 14:52 Troponin T Hi Sens 6Hr Delta 175.5 ng/L (0-12) H* 11/02/22 14:52 Total Protein 6.0 g/dL (6.6-8.7) L 11/03/22 04:41 Albumin 3.8 g/dL (3.5-5.2) 11/03/22 04:41 Globulin 2.2 g/dL (1.3-4.6) 11/03/22 04:41 Triglycerides 95 mg/dL (0-150) 11/03/22 04:41 Cholesterol 147 mg/dL (0-200) 11/03/22 04:41 LDL Cholesterol, Calc 58 mg/dL (50-129) 11/03/22 04:41 HDL Cholesterol 70 mg/dL (60-100) 11/03/22 04:41 LDL/HDL Ratio 0.83 RATIO (0.00-3.22) 11/03/22 04:41 Cholesterol/HDL Ratio 2.10 mg/dL (0.0-4.40) 11/03/22 04:41 Vitamin B12 544 pg/mL (232-1245) 11/02/22 08:41 Folate > 20.0 ng/mL (4.8-37.3) 11/03/22 04:41 Procalcitonin 0.05 ng/mL (0-0.5) 11/02/22 08:41 TSH 2.03 uIU/mL (0.27-4.20) 11/02/22 08:41 Urine Color Light yellow (Yellow) 11/02/22 14:40 Urine Appearance Clear (CLEAR) 11/02/22 14:40 Urine pH 7 (5-7) 11/02/22 14:40 Ur Specific [place] 1.010 (1.005-1.030) 11/02/22 14:40 Urine Protein Neg (Negative) 11/02/22 14:40 Urine Glucose (UA) 1+ (Normal) H 11/02/22 14:40 Urine Ketones 1+ (Negative) H 11/02/22 14:40 Urine Blood Neg (Negative) 11/02/22 14:40 Urine Nitrate Negative (Negative) 11/02/22 14:40 Urine Bilirubin Neg (Negative) 11/02/22 14:40 Urine Urobilinogen Norm mg/dL (Negative) 11/02/22 14:40 Ur Leukocyte Esterase Negative (Negative) 11/02/22 14:40 Vitals Last Vital Signs Temp 97.8 F 11/03/22 08:00 Pulse 73 11/03/22 08:00 Resp 16 11/03/22 08:00 BP 149/74 11/03/22 08:00 Pulse Ox 98 11/03/22 08:00 O2 Del Method Room Air 11/03/22 08:00 Discharge Plan Discharge Patient Disposition: Home Condition: Stable Prescriptions: New aspirin 81 mg Tablet,Delayed Release (Dr/Ec) 81 mg PO DAILY Qty: 30 0RF atorvastatin 40 mg Tablet 40 mg PO BEDTIME Qty: 30 0RF clopidogrel 75 mg Tablet 75 mg PO DAILY Qty: 30 0RF pantoprazole 40 mg Tablet,Delayed Release (Dr/Ec) 40 mg PO DAILY Qty: 30 0RF metoprolol tartrate 25 mg Tablet 25 mg PO BID Qty: 60 0RF Janumet 50-500 mg tablet 1 tab PO BID Qty: 60 0RF Continued multivitamin Tablet 1 tab PO DAILY trazodone 150 mg tablet 150 mg PO QPM losartan 25 mg tablet 25 mg PO BID cranberry 400 mg Capsule 400 mg PO DAILY Rx Instructions: administer with a meal vitamin B complex Tablet 1 tab PO DAILY plant stanol lien 450 mg Tablet 450 mg PO DAILY biotin 5 mg Tablet 5 mg PO DAILY Probiotic 10 billion cell Capsule 10,000 mmu cells PO DAILY Discontinued atorvastatin 10 mg tablet 10 mg PO QPM Discharge Orders: Discharge Order (Routine); Ordered 11/03/22 Ordered By: Franklyn Padilla Referrals: Sid Reynoso MD [Primary Care Provider] - 11/07/22 1:30 pm Jr Ambriz M.D [Physician] - 1 month (Your Dr. Ambriz follow up appointment will be scheduled while you are at your Mikayla Ann appointment. Thank you.) Mikayla Ann FNP [Nurse Practitioner] - 11/10/22 9:00 am Discharge Diet: Cardiac and Diabetic Discharge Activity: Resume usual activity and Increase activity as tolerated Patient Instructions: Metoprolol (By mouth) (Lopressor, Toprol XL), Aspirin (By mouth) (Estephanie Extra Strength, Estephanie Aspirin Children's,..., Atorvastatin (By mouth) (Lipitor), Clopidogrel (By mouth) (Plavix), Pantoprazole (By mouth) (Protonix), Sitagliptin (By mouth) (Januvia), Coronary Angioplasty (DC), Opioid Safety, Post Angiogram Home Care Instructions, Post Heart Attack Stoplight Activity Restrictions/Additional Instructions: You are on number of new medications including aspirin and Plavix which are the antiplatelet medications for your heart attack. Your dose of atorvastatin has been increased to 40 mg daily. Continue losartan as before. Take metoprolol 25 mg twice daily along with losartan. You are also found to be diabetic. He was started on a medication called Janumet which is for diabetes. Take Janumet morning and evening. Please follow-up with a primary care provider within next 1 week. You should have a repeat A1c done in 6 months. You should follow-up with Mikayla Ann/nurse practitioner in cardiology within next 1 week onset appointment. Discharge Attestations Time Spent in Discharge Care*: greater than 30 min Specific Discharge Activities: educating patient, educating and/or supporting family/caregiver, discussing with pcp/other providers, discussing with child support case officer/social workers/dc planners, documenting/other paperwork and evaluating patient/reviewing data Quality Metrics Clinical Quality Measures [ Acute Myocardial Infaction { Clinical Trial Participant: No; Contraindication to aspirin: None; Aspirin prescribed; Contraindication to statin: None; Statin prescribed; Contraindication to PCI: None; PCI performed; Contraindication to Fibrinolytics: None; fibrinolytics given}] Coding Level of Care Code 93427 Total time (in minutes) for Discharge: 60 Diagnoses NSTEMI (non-ST elevated myocardial infarction) I21.4 Diabetes E11.9 Hypertension I10
[2022-11-03 11:03] VITALS: BP 149/74; PULSE 73; RESP 16; TEMP 36.6; O2SAT 98
--- NOTE | 2022-11-06 10:21 | PC.SOCIAL ---
F/u Spoke with patient who reports that she is doing fine. She reports that she picked up all medications. She denies any needs at this time. She is aware of her follow up appointments and plans to see her PCP tomorrow as scheduled.
== END 2022-11-03 11:15 | disposition home or self-care (01) | DRG 247 ==
LOC: ER 09:49 → CSU 10:22
PROVIDERS: Internal Medicine; Admitting Provider Student in an Organized Health Care Education/Training Program; Emergency Provider Family Medicine; PCP Family Medicine; Visit Provider Student in an Organized Health Care Education/Training Program
PROC: 027035Z Dilation of Coronary Artery, One Artery with Two Drug-eluting Intraluminal Devices, Percutaneous Approach (ICD-10-PCS; principal; 2022-11-02 11:00)
PROC: 027035Z Dilation of Coronary Artery, One Artery with Two Drug-eluting Intraluminal Devices, Percutaneous Approach (ICD-10-PCS; 2022-11-02 11:00)
DX: I21.4 Non-ST elevation (NSTEMI) myocardial infarction (principal); E11.9 Type 2 diabetes mellitus without complications; I10 Essential (primary) hypertension; I25.10 Atherosclerotic heart disease of native coronary artery without angina pectoris; E78.5 Hyperlipidemia, unspecified; Z79.891 Long term (current) use of opiate analgesic
CPT/HCPCS: 36415; 71045; 80053; 80061; 81003; 82607; 82746; 83036; 83735; 84100; 84145; 84443; 84484; 85025; 85347; 85378; 93005; 93306; 93454; 94664; 96365; 96367; 96372; 99152; 99153; 99285; C1725; C1769; C1874; C1887; C1894; C9600; J1644; J1650; J2250; J3010; J3490; J7030; Q9967

== ENCOUNTER → 2022-11-10 08:28 | Outpatient (BNVA) | payer MEDICARE, SELFPAY | PROVIDERS: PCP Family Medicine; Visit Provider Nurse Practitioner Family | DX: I25.10 Atherosclerotic heart disease of native coronary artery without angina pectoris (principal); I21.4 Non-ST elevation (NSTEMI) myocardial infarction; I10 Essential (primary) hypertension | CPT/HCPCS: 80048; 99214 ==

== ENCOUNTER 2023-01-28 07:51 | Emergency (ER) | payer MEDICARE, SELFPAY ==
--- NOTE | 2023-01-28 07:53 | XRR_ITS ---
PROCEDURE INFORMATION: Exam: XR Chest Exam date and time: 01/28/2023 8:08 AM Age: 72 years old Clinical indication: Pain; Chest pressure; Additional info: Cp TECHNIQUE: Imaging protocol: Radiologic exam of the chest. Views: 1 view. COMPARISON: CR XR chest 1V portable [id number] 11/02/2022 8:52 AM FINDINGS: Lungs: There is focal opacity at the lateral left base that may reflect atelectasis or pneumonia. There is a nodular density at the left base measuring 0.9 cm. Pleural spaces: No pleural effusion. No pneumothorax. Heart/Mediastinum: The cardiac silhouette is unchanged. No gross evidence of pneumomediastinum. Bones/joints: No gross fracture. XR/XR chest 1V portable [id number] IMPRESSION: 1. Focal opacity at the lateral left base that may reflect atelectasis or pneumonia. 2. Nodular density at the left base measuring 0.9 cm. This could represent a costochondral calcification or granuloma. It is difficult to exclude a pulmonary nodule. 3. Consider CT chest.
[2023-01-28 07:56] VITALS: BP 126/68; PULSE 80; RESP 14; TEMP 36.9; O2SAT 92; BMI 18.8
--- NOTE | 2023-01-28 07:57 | ED_ITS ---
HPI - Syncope General: Chief Complaint: Syncope Stated Complaint: sob, fainted, heart attack recently Time Seen by Provider: 01/28/23 07:53 Source: patient Mode of arrival: ambulatory Limitations: no limitations History of Present Illness: 72-year-old female states she got up this morning was feeding her cats roughly an hour ago she felt lightheaded and had a syncopal event. She states she had passed out for seconds. She denies any chest pain or headache before or after the event she denies any shortness of breath to me. She states she is feeling back to normal and is unsure what exactly happened she had no vomiting or diarrhea. Associated symptoms: Deny abdominal pain, chest pain, fever(s), headache(s) or nausea Review of Systems Const: Denies: fever(s), chills, body aches or change in appetite Eyes: Denies: blurry vision or eye discomfort ENMT: Denies: throat pain or dental pain Card: Reports: syncope; Denies: chest pain Resp: Denies: dyspnea GI: Denies: abdominal pain, nausea, vomiting or diarrhea : Denies: dysuria Musc: Denies: neck pain or back pain Skin/Breast: Denies: rash Neuro: Denies: headache(s) PFSH ED PFSH: Medical History Coronary artery disease Hypertension Prediabetes Surgical History History of appendectomy History of tubal ligation Family History Other Cancer Social History Smoking and tobacco status: never smoked Alcohol intake: never Substance/Drug Use: never Adopted: No Caregiver/support person: Yes Lives independently: Yes Household members: spouse Housing: House Physical Exam Const: COMMON NORMALS: no acute distress, patient oriented x3 and healthy appearing HENMT: COMMON NORMALS: normocephalic and atraumatic HEAD & SCALP: normocephalic and atraumatic Eye: COMMON NORMALS: Equal, round and reactive pupils present and EOMs intact bilaterally PUPIL: Yes Equal, round and reactive pupils present Neck/C-Spine: COMMON NORMALS: full ROM and supple Chest: COMMONS NORMALS: normal inspection of the chest and normal palpation of entire chest wall Resp: COMMON NORMALS: normal respiratory effort, No retractions, No use of accessory muscles and clear to auscultation bilaterally AUSCULTATION: clear to auscultation bilaterally Cardio: COMMON NORMALS: regular rate, regular rhythm and No murmurs present (Cardio) RATE: regular rate RHYTHM: regular rhythm GI: COMMON NORMALS: Normal to inspection, nondistended, normoactive bowel soun ds present, Soft to palpation, non-tender and no masses PALPATION: Yes Soft to palpation Extremity: COMMON NORMALS: normal to inspection and full ROM Neuro: COMMON NORMALS: patient oriented x3, moves all extremities and no focal motor deficits Psych: COMMON NORMALS: mental status grossly normal, Normal thought process present and cooperative THOUGHT PROCESS: Normal thought process present Skin: COMMON NORMALS: no rashes or lesions noted and no wounds GENERAL SKIN EXAM: no rashes or lesions noted Course Vital Signs: Vital signs: Vital Signs Temperature 98 F 01/28/23 11:57 Pulse Rate 87 01/28/23 11:57 Respiratory Rate 18 01/28/23 11:57 Blood Pressure 131/66 01/28/23 11:57 Pulse Oximetry 98 01/28/23 11:57 Oxygen Delivery Me thod Room Air 01/28/23 08:02 MDM - Syncope Medical Decision Making Patient presents here after syncopal event likely a vagal event she has been well-appearing here her vital signs of been normal blood works normal no signs of acute coronary syndrome did inform her of the finding of her CT chest she is to follow-up with her PCP we will put an order in to get her follow-up with surgeon as well for likely EGD. Medical Records I reviewed the patient's medical records. Lab Data I reviewed the patient's lab results. 01/28/23 08:05 01/28/23 08:05 Radiology Impressions Chest X-Ray 01/28/23 07:53 IMPRESSION: 1. Focal opacity at the lateral left base that may reflect atelectasis or pneumonia. 2. Nodular density at the left base measuring 0.9 cm. This could represent a costochondral calcification or granuloma. It is difficult to exclude a pulmonary nodule. 3. Consider CT chest. Chest CTA 01/28/23 08:32 IMPRESSION: 1. Mild peribronchial wall thickening; query viral infection/bronchitis, chronic bronchitis and/or asthma. 2. Solid pulmonary nodule in the right upper lobe measuring 3.5 mm. As per Fleischner Society 2017 guidelines for follow-up and management of pulmonary nodules: For patients at low risk (minimal or absent history of smoking and of other known risk factors), no routine follow-up. For patient at high risk (history of smoking or of other known risk factors), recommend optional CT at 12 months. 3. The proximal esophageal wall appears prominent, and there is soft tissue fullness involving the esophagus proximal to the level of the frankie. This could reflect a subtle esophageal mass. Consider upper endoscopy further assess. 4. Small dense left renal lesion. Consider follow-up CT abdomen in 3-6 months to reassess. 5. Cardiomegaly with coronary artery disease. COMMENTS: Consistent with the [place] [employer]'s Incidental Findings Committee white paper (J Am Avelina Radiol 2018): Any incidental renal lesion less than 1 cm or classified as too small to characterize, or any incidental cystic renal lesion characterized as simple-appearing, is likely benign. No follow-up imaging is recommended for these lesions per consensus recommendations based on imaging criteria. Laboratory Results WBC 5.96 10^3/uL (3.29-11.43) 01/28/23 08:05 RBC 4.51 10^6/uL (3.85-5.65) 01/28/23 08:05 Hgb 13.80 g/dL (11.27-16.99) 01/28/23 08:05 Hct 41.5 % (36-47) 01/28/23 08:05 MCV 92.0 fl (85-98) 01/28/23 08:05 MCH 30.6 pg (27-33) 01/28/23 08:05 MCHC 33.3 g/dL (30-55) 01/28/23 08:05 RDW 13.1 % (12.1-15.1) 01/28/23 08:05 Plt Count 165 10^3/cmm (157-399) 01/28/23 08:05 MPV 9.0 fL (7.4-10.4) 01/28/23 08:05 Neut % (Auto) 88.1 % 01/28/23 08:05 Lymph % (Auto) 7.6 % 01/28/23 08:05 [place] % (Auto) 3.7 % 01/28/23 08:05 Eos % (Auto) 0.0 % 01/28/23 08:05 Baso % (Auto) 0.3 % 01/28/23 08:05 Neut # (Auto) 5.25 10^3/uL (1.8-7.7) 01/28/23 08:05 Lymph # (Auto) 0.5 10^3/uL (0.8-4.8) L 01/28/23 08:05 Slope # (Auto) 0.2 10^3/uL (0.2-0.9) 01/28/23 08:05 Eos # (Auto) 0.0 10^3/uL (0.0-0.8) 01/28/23 08:05 Baso # (Auto) 0.0 10^3/uL (0.0-0.1) 01/28/23 08:05 Nucleated RBC % (auto) 0 % 01/28/23 08:05 Nucleated RBCs # 0.0 /100WBC 01/28/23 08:05 PT 12.30 SECONDS (12.1-14.9) 01/28/23 08:05 INR 0.89 (0.8-1.2) 01/28/23 08:05 Sodium 137 mmol/L (136-145) 01/28/23 08:05 Potassium 4.1 mmol/L (3.5-5.1) 01/28/23 08:05 Chloride 99 mmol/L (98-107) 01/28/23 08:05 Carbon Dioxide 26 mmol/L (22-29) 01/28/23 08:05 Anion Gap 16.1 (5-19) 01/28/23 08:05 BUN 22 mg/dL (8-23) 01/28/23 08:05 Creatinine 1.3 mg/dL (0.5-0.9) H 01/28/23 08:05 GFR Calculation Not Reportable 01/28/23 08:05 Glucose 200 mg/dL (65-115) H 01/28/23 08:05 POC Glucose 178 mg/dL (70-110) H 01/28/23 07:55 Calculated Osmolality 293 mOsm/kg (285-295) 01/28/23 08:05 Calcium 9.0 mg/dL (8.5-10.5) 01/28/23 08:05 Total Bilirubin 0.4 mg/dL (0.15-1.2) 01/28/23 08:05 AST 52 U/L (0-32) H 01/28/23 08:05 ALT 37 U/L (0-33) H 01/28/23 08:05 Alkaline Phosphatase 119 U/L (35-105) H 01/28/23 08:05 Troponin T Baseline 9 ng/L (0-10) 01/28/23 08:05 Troponin T 120 Minute 9.86 ng/L (0-10) 01/28/23 10:20 Delta Troponin T 0.86 ABS# (0-10) 01/28/23 10:20 Total Protein 6.1 g/dL (6.6-8.7) L 01/28/23 08:05 Albumin 4.3 g/dL (3.5-5.2) 01/28/23 08:05 Globulin 1.8 g/dL (1.3-4.6) 01/28/23 08:05 EKG Data EKG 1: I personally reviewed and interpreted this EKG as follows: EKG interpretation date: 01/28/23 EKG interpretation time: 07:55 Interpretation: nsr hr [address] elevation qrs 86 qtc 396 EKG 2: I personally reviewed and interpreted this EKG as follows: EKG interpretation date: 01/28/23 EKG interpretation time: 09:26 Interpretation: nsr hr [address] or t wave abnormalities qrs 89 qtc 400 Discharge Plan Discharge Patient Disposition: Home Clinical Impression: Syncope Condition: Stable Prescriptions: No Action multivitamin Tablet 1 tab PO DAILY losartan 25 mg tablet 25 mg PO BID cranberry 400 mg Capsule 400 mg PO DAILY Rx Instructions: administer with a meal biotin 5 mg Tablet 5 mg PO DAILY aspirin 81 mg Tablet,Delayed Release (Dr/Ec) 81 mg PO DAILY Qty: 30 0RF atorvastatin 40 mg Tablet 40 mg PO BEDTIME Qty: 30 0RF clopidogrel 75 mg Tablet 75 mg PO DAILY Qty: 30 0RF metoprolol tartrate 25 mg Tablet 25 mg PO BID Qty: 60 0RF Discharge Orders: Discharge ED (Routine); Ordered 01/28/23 Ordered By: Tamiko Watson Referrals: Delaplaine,Sid M, MD [Primary Care Provider] - 1-3 days Discharge Diet: Advance as tolerated Discharge Activity: Resume usual activity Patient Instructions: Syncope (ED) Coding Level of Care Code ED Police Officer Crime Prevention for Luis Pulliam
[2023-01-28 08:01] LABS: Glucose Point of Care 178 mg/dL (70-110)
[2023-01-28 08:02] VITALS: BP 126/68; PULSE 80; RESP 18; O2SAT 92
[2023-01-28] MEDS: sodium chloride 0.9% 1,000 ML 999 ML IV (08:27)
[2023-01-28 08:32] VITALS: RESP 18
--- NOTE | 2023-01-28 08:32 | CTR_ITS ---
PROCEDURE INFORMATION: Exam: CTA Chest With Contrast Exam date and time: 01/28/2023 9:56 AM Age: 72 years old Clinical indication: Cough and dyspnea and other: Syncope TECHNIQUE: Imaging protocol: Computed tomographic angiography of the chest with contrast. Exam focused on the arteries. 3D rendering (Not supervised by radiologist): MIP and/or 3D reconstructed images were created by the technologist. Radiation optimization: All CT scans at this facility use at least one of these dose optimization techniques: automated exposure control; mA and/or kV adjustment per patient size (includes targeted exams where dose is matched to clinical indication); or iterative reconstruction. Contrast material: OMNI 350; Contrast volume: 51 ml; Contrast route: INTRAVENOUS (IV); REPORTING DATA: Count of CT and Cardiac NM exams in prior 12 months: This patient has received 0 known CTs and 0 known cardiac nuclear medicine studies in the 12 months prior to the current study. COMPARISON: CR (CHEST, ) 01/28/2023 8:08 AM RADIATION DOSE METRICS: Total DLP (mGy-cm): 768 FINDINGS: Pulmonary arteries: No pulmonary embolus. Aorta: No thoracic aortic aneurysm. No thoracic aortic dissection. Lungs: There is subsegmental atelectasis/scarring at the lung bases, left greater than right. There is peribronchial wall thickening. Small granulomata in the lung apices. Solid pulmonary nodule in the right upper lobe measuring 3.5 mm (image 92). Pleural spaces: No pleural effusion. No pneumothorax. Heart: No pericardial effusion. Coronary arterial calcifications are seen. The heart is enlarged. Lymph nodes: No significant mediastinal lymphadenopathy. Diaphragm: No hiatal hernia. Adrenal glands: Low attenuation thickening of the adrenal glands likely reflects adrenal hyperplasia. Kidneys and ureters: A simple left renal cyst measures 0.9 cm. Small dense left renal lesion measuring 0.5 cm. Bones/joints: The nodular density identified at the left base reflects a costochondral calcification. No acute fracture is identified. Esophagus: The proximal esophageal wall appears prominent, and there is soft tissue fullness involving the esophagus proximal to the level of the frankie. This could reflect a subtle esophageal mass. Consider upper endoscopy further assess. CT/CT angio chest PE protcl [id number] IMPRESSION: 1. Mild peribronchial wall thickening; query viral infection/bronchitis, chronic bronchitis and/or asthma. 2. Solid pulmonary nodule in the right upper lobe measuring 3.5 mm. As per Fleischner Society 2017 guidelines for follow-up and management of pulmonary nodules: For patients at low risk (minimal or absent history of smoking and of other known risk factors), no routine follow-up. For patient at high risk (history of smoking or of other known risk factors), recommend optional CT at 12 months. 3. The proximal esophageal wall appears prominent, and there is soft tissue fullness involving the esophagus proximal to the level of the frankie. This could reflect a subtle esophageal mass. Consider upper endoscopy further assess. 4. Small dense left renal lesion. Consider follow-up CT abdomen in 3-6 months to reassess. 5. Cardiomegaly with coronary artery disease. COMMENTS: Consistent with the [place] [employer]'s Incidental Findings Committee white paper (J Am Avelina Radiol 2018): Any incidental renal lesion less than 1 cm or classified as too small to characterize, or any incidental cystic renal lesion characterized as simple-appearing, is likely benign. No follow-up imaging is recommended for these lesions per consensus recommendations based on imaging criteria.
[2023-01-28 09:00] LABS: Basophils % 0.3 %; Hematocrit 41.5 % (36-47); Lymphocytes # 0.5 10^3/uL (0.8-4.8); Lymphocytes % 7.6 %; Mean Corpuscular HGB Conc 33.3 g/dL (30-55); Mean Corpuscular Hemoglobin 30.6 pg (27-33); Monocytes # 0.2 10^3/uL (0.2-0.9); Monocytes % 3.7 %; Neutrophils # 5.25 10^3/uL (1.8-7.7); Neutrophils % 88.1 %; Nucleated Red Blood Cells % 0 %; Platelet Count 165 10^3/cmm (157-399); Red Blood Count 4.51 10^6/uL (3.85-5.65); Red Cell Distribution Width 13.1 % (12.1-15.1); White Blood Count 5.96 10^3/uL (3.29-11.43)
[2023-01-28 09:03] LABS: INR 0.89 (0.8-1.2)
[2023-01-28 09:13] LABS: Alanine Aminotransferase 37 U/L (0-33); Albumin Level 4.3 g/dL (3.5-5.2); Alkaline Phosphatase 119 U/L (35-105); Anion Gap 16.1 (5-19); Aspartate Amino Transferase 52 U/L (0-32); Blood Urea Nitrogen 22 mg/dL (8-23); Carbon Dioxide 26 mmol/L (22-29); Chloride 99 mmol/L (98-107); Globulin 1.8 g/dL (1.3-4.6); Glucose 200 mg/dL (65-115); Osmolality Calculated 293 mOsm/kg (285-295); Potassium 4.1 mmol/L (3.5-5.1); Sodium 137 mmol/L (136-145); Total Bilirubin 0.4 mg/dL (0.15-1.2); Total Protein 6.1 g/dL (6.6-8.7)
[2023-01-28 09:17] LABS: Troponin(5th) Baseline 9 ng/L (0-10)
--- NOTE | 2023-01-28 09:26 | ECG_ITS ---
[facility] Test Date: 2023-01-28 Pat Name: Sylvia Landry Department: Room: Gender: Female Otorhinolaryngologist: : 1950 Requested By: Tamiko Watson Order Number: [id number] Reading MD: Shravan Garcia M.D. Measurements Intervals [place] Rate: 84 P: 69 ID: [id number] QRS: 71 QRSD: 89 T: 21 QT: 358 QTc: 426 Interpretive Statements SINUS RHYTHM POSSIBLE LEFT ATRIAL ENLARGEMENT [-0.1mV P-WAVE IN V1/V2] NONSPECIFIC T-WAVE ABNORMALITY Compared to ECG 11/02/2022 15:34:48 Sinus arrhythmia no longer present T-wave abnormality still present Electronically Signed On 01-28-2023 10:56:59 CDT by Shravan Garcia M.D. [email or web address]
[2023-01-28 09:32] VITALS: BP 128/73; BP 131/72; BP 140/99; PULSE 89; PULSE 93; PULSE 99
[2023-01-28] MEDS: iohexol 350 mg/mL 500 mL Btl (per mL) IV (10:00)
[2023-01-28 11:19] LABS: Troponin 5 2HR 9.86 ng/L (0-10); Troponin 5 2HR Delta 0.86 ABS# (0-10)
[2023-01-28] MEDS: ketorolac 30 mg/mL INJ 15 MG IVP (11:53)
[2023-01-28 11:57] VITALS: BP 131/66; PULSE 87; RESP 18; TEMP 36.6; O2SAT 98
--- NOTE | 2023-01-29 10:33 | DCPLANNER ---
Addendum entered by Hayley Alaniz 02/01/23 12:39: Patient has a follow up appointment scheduled for Sunday, February 12, 2023 at 8:[address] Zavala at general surgery. Original Note: global project manager had message to schedule a follow up appointment for patient with general surgery. global project manager sent patients information to the front office staff at general surgery. Patients information will be printed and reviewed. Clinic will call patient with appointment information.
== END 2023-01-28 12:41 | disposition home or self-care (01) ==
PROVIDERS: Emergency Provider Emergency Medicine; PCP Family Medicine
DX: R55 Syncope and collapse (principal)
CPT/HCPCS: 36415; 36416; 71045; 71275; 80053; 82962; 84484; 85025; 85610; 93005; 96361; 96374; 99285; J1885; J7030; Q9967

== ENCOUNTER → 2023-02-12 07:36 | Outpatient (BNVA) | payer MEDICARE, SELFPAY | PROVIDERS: PCP Family Medicine; Visit Provider Surgery | DX: K22.9 Disease of esophagus, unspecified (principal) | CPT/HCPCS: 99204 ==

== ENCOUNTER 2023-03-15 07:49 | Outpatient (CLI) | payer MEDICARE, SELFPAY ==
--- NOTE | 2023-03-15 08:13 | XR_ITS ---
WS: [id number] Exam: XR knee LT 3V* [id number] Date/Time of Exam: 03/15/2023 8:19 AM Reason For Exam: KNEE JOINT PAIN, LEFT Comparison 05/09/2019. No fracture or dislocation. No joint effusion. Spurring along the upper pole of the patella. Chondroc alcinosis of the lateral meniscus. IMPRESSION: 1. Mild degenerative changes and chondrocalcinosis. 2. No fracture or joint effusion.
== END 2023-03-15 07:50 | disposition home or self-care (01) ==
PROVIDERS: PCP Family Medicine; Visit Provider Family Medicine
DX: M25.562 Pain in left knee (principal); M11.262 Other chondrocalcinosis, left knee
CPT/HCPCS: 73562

== ENCOUNTER → 2023-06-05 09:34 | Outpatient (BNVA) | payer MEDICARE, SELFPAY | PROVIDERS: PCP Family Medicine; Visit Provider Student in an Organized Health Care Education/Training Program | DX: M17.12 Unilateral primary osteoarthritis, left knee; M11.262 Other chondrocalcinosis, left knee | CPT/HCPCS: 73560; 73565; 99204; J3301 ==

== ENCOUNTER → 2023-06-20 13:34 | Outpatient (BNVA) | payer MEDICARE, SELFPAY | PROVIDERS: PCP Family Medicine; Visit Provider Internal Medicine | DX: I25.10 Atherosclerotic heart disease of native coronary artery without angina pectoris (principal); I10 Essential (primary) hypertension | CPT/HCPCS: 99214 ==

== ENCOUNTER 2023-07-05 13:00 | Outpatient (CLI) | payer MEDICARE, SELFPAY ==
--- NOTE | 2023-07-05 13:05 | CT_ITS ---
WS: [id number] CT ABDOMEN WITHOUT CONTRAST HISTORY: RENAL MASS Contiguous single phase 5 mm axial imaging performed to the abdomen. Oral contrast has not been provi ded. Coronal and sagittal reformats are submitted. All CT scans at [facility] use at least on e of these dose optimization techniques: automated exposure control; mA and/or kV adjustment per tyler ent size (includes targeted exams where dose is matched to clinical indication); or iterative reconst ruction. IV CONTRAST: None Oral contrast: No DLP: 165.85 mGy.cm COMPARISON: 01/28/2023 Lower thorax: Lung bases are clear. Heart is normal size. Small hiatal hernia. Liver/biliary system: Normal size with no intrahepatic dilatation. Gallbladder: Normal. No gallstones or wall thickening. No pericholecystic fluid. Pancreas: Normal size pancreas and pancreatic duct. No adjacent inflammation. Spleen: Normal size spleen. No mass or infarct. Adrenal glands: Normal. Right kidney: Normal size RIGHT kidney. There is a low-attenuation mass in the renal pelvis measuring 2.0 x 1.2 cm. Hounsfield units are less than 10. No obstruction. Left kidney: Normal size kidney. There is a very vague area of decreased attenuation in the superior posterior pole. No obstruction. Aorta: Mild atherosclerosis with no aneurysm. Lymphadenopathy: None. Free fluid: None. GI tract: As visualized no abnormality. Abdominal wall: Unremarkable abdominal wall. No hernia. Visualized osseous structures: L4 anterolisthesis by 4 mm. IMPRESSION: 1. Noncontrast examination of the kidneys is not sufficient to exclude mass or confirm benign cyst. 2. Reidentified are bilateral renal masses of decreased attenuation. Cannot be characterized further . For better assessment of the kidneys CT or MRI evaluation with and without IV contrast is recommend ed. These would probably not be visible by ultrasound.
== END 2023-07-05 13:01 | disposition home or self-care (01) ==
LOC: RAD 13:01
PROVIDERS: PCP Family Medicine; Visit Provider Family Medicine
DX: N28.89 Other specified disorders of kidney and ureter (principal)
CPT/HCPCS: 74150

== ENCOUNTER 2023-07-26 10:39 | Outpatient (CLI) | payer MEDICARE, SELFPAY ==
--- NOTE | 2023-07-26 10:48 | MR_ITS ---
WS: [id number] MRI ABDOMEN WITH AND WITHOUT CONTRAST. COMPARISON: CT abdomen 07/05/2023 Multiplanar, multisequence imaging is performed with and without contrast. MultiHance 10 mL IV. Normal size RIGHT kidney. Well-circumscribed cystic mass in the lower pole measures 1.8 x 1.4 cm. No enhancement on the postcontrast imaging. Normal enhancement of the cortex with no obstruction. There is a slight bulbous dilatation of the proximal ureter but there is no obstructive pattern. Seen only on the postcontrast imaging are few additional very tiny nonenhancing cortical hypointensities Normal size LEFT kidney. There are a few nonenhancing masses within the kidney. On the T2 sequences t hese are of increased signal. The largest in the upper pole measures 0.7 x 1.1 cm. No areas of enhanc ement. No obstruction of the kidney. Mildly bulbous appearance of the proximal ureter but there is no obstructive pattern. There is central soft tissue of intermediate signal in the bulbous portion of t he proximal ureter which is surrounded by excreted contrast. This soft tissue nodule measures 6 mm. Visualized liver and spleen are negative. No areas of abnormal enhancement. The adrenal glands are ne gative. IMPRESSION: 1. No solid renal mass or obstruction. 2. Very mildly bulbous appearance of the proximal ureters. This is bilaterally but greatest on the L EFT. There is a small 6 mm filling defect in the proximal dilated LEFT ureter which should be further evaluated or at least followed by imaging and urology. This could potentially represent a very early uroepithelial lesion. Follow-up MRI kidneys in 3 to 4 months versus urology evaluation. 3. Bilateral renal cysts.
[2023-07-26] MEDS: gadobenate dimeglumine 20 mL vial IV (11:42)
== END 2023-07-26 10:40 | disposition home or self-care (01) ==
LOC: RAD 10:40
PROVIDERS: PCP Family Medicine; Visit Provider Family Medicine
DX: N28.89 Other specified disorders of kidney and ureter (principal); N28.1 Cyst of kidney, acquired
CPT/HCPCS: 74183; A9577

== ENCOUNTER → 2023-09-04 09:25 | Outpatient (BNVA) | payer MEDICARE, SELFPAY | PROVIDERS: PCP Family Medicine; Visit Provider Student in an Organized Health Care Education/Training Program | DX: M17.12 Unilateral primary osteoarthritis, left knee | CPT/HCPCS: 99213 ==

== ENCOUNTER → 2023-10-11 10:05 | Outpatient (BNVA) | payer MEDICARE, SELFPAY | PROVIDERS: PCP Family Medicine; Visit Provider Physician Assistant | DX: M25.562 Pain in left knee (principal); M17.12 Unilateral primary osteoarthritis, left knee | CPT/HCPCS: 20610; 99213; J7318 ==

== ENCOUNTER → 2023-10-17 08:44 | Outpatient (BNVA) | payer MEDICARE, SELFPAY | PROVIDERS: PCP Family Medicine; Visit Provider Surgery | DX: Z12.11 Encounter for screening for malignant neoplasm of colon (principal) | CPT/HCPCS: 99024; 99214 ==

== ENCOUNTER → 2023-12-19 13:30 | Outpatient (BNVA) | payer MEDICARE, SELFPAY | PROVIDERS: PCP Family Medicine; Visit Provider Internal Medicine | DX: I25.10 Atherosclerotic heart disease of native coronary artery without angina pectoris (principal); I10 Essential (primary) hypertension; Z87.891 Personal history of nicotine dependence | CPT/HCPCS: 99214 ==

== ENCOUNTER → 2024-06-25 15:19 | Outpatient (BNVA) | payer MEDICARE, SELFPAY | PROVIDERS: PCP Family Medicine; Visit Provider Internal Medicine | DX: I25.10 Atherosclerotic heart disease of native coronary artery without angina pectoris (principal); I10 Essential (primary) hypertension; R06.09 Other forms of dyspnea; R07.89 Other chest pain; Z87.891 Personal history of nicotine dependence | CPT/HCPCS: 99214 ==

== ENCOUNTER → 2024-07-02 09:09 | Outpatient (BNVA) | payer MEDICARE, SELFPAY | PROVIDERS: PCP Family Medicine; Visit Provider Surgery | DX: Z12.11 Encounter for screening for malignant neoplasm of colon (principal); K22.89 Other specified disease of esophagus | CPT/HCPCS: 99024; 99214 ==

== ENCOUNTER 2024-07-11 07:56 | Outpatient (CLI) | payer MEDICARE, SELFPAY ==
[2024-07-11 08:09] VITALS: BMI 20.6
--- NOTE | 2024-07-11 08:09 | ECG_ITS ---
[employer] Test Date: 2024-07-11 Pat Name: Sylvia Landry Department: Room: Gender: Female Classroom Coordinator: : 1950 Requested By: Jr Ambriz Order Number: [id number] Eb MD: Jr Ambriz M.D. Interpretive Statements LEXISCAN SESTAMIBI STRESS TEST Procedure: At the baseline, the blood pressure was 138/61 mmHg with a heart rate of 63 bpm. The electrocardiogram showed normal sinus rhythm, normal axis with normal ST and T's. The Lexiscan was infused over a period of 20 seconds. A total of 0.4 mg of Lexiscan was infused. The stress phase was continued for a total of 5 minutes. Heart rate was at the end of stress phase was 88 bpm and a blood pressure of 110/60 mmHg. The EKG at the peak infusion revealed normal sinus rhythm with no significant ST-T wave changes. Sestamibi was injected 20 seconds after the Lexiscan infusion. Blood pressure at the end of recovery phase was 115/62 mmHg with a heart rate of 86bpm. Conclusion: 1. Normal EKG response to Lexiscan infusion 2. No Lexiscan induced chest pain or cardiac arrhythmia. 3. Normal blood pressure and heart rate response. 4. Sestamibi/sestamibi perfusion scan pending; see separate report. Electronically Signed On 07-13-2024 12:31:26 CREDIT FRONT OFFICE DEVELOPER by Jr Ambriz M.D. [email or web address]
--- NOTE | 2024-07-11 08:09 | NMCV_ITS ---
NM keyla perf SPECT r/s* [id number] Sylvia Landry Age: 74 Gender: F : 1950 Exam Date: 07/11/2024 08:40 Ordering Phys: Jr Ambriz M.D ([email or web address]) Technologist: LEROY Kevin Exam Location: [facility] Indications: cp STRESS TEST Please [facility] for [facility] IMAGE PROTOCOL Rest/Stress 1 Lexiscan Day Radiopharmaceutical Dose (mCi) Administration Site Administered by Rest: Tc-99m 10.8 IV LEROY Kevin Sestamibi Stress:Tc-99m 32.5 IV LEROY Caballero Sestamibi Rest: 11-Jul-2024 60 Discovery 630 Stress: 11-Jul-2024 30 Discovery 630 0.4mg Lexiscan. Images obtained in supine and prone position. SPECT RESULTS Technical Quality: Good Raw Data Analysis: Normal Image Corrections: No attenuation or motion correction applied Summed Stress Score: 1 Summed Rest Score: 6 Summed Difference Score: 1 PERFUSION FINDINGS SPECT images demonstrate homogeneous tracer distribution throughout the myocardium. FUNCTIONAL RESULTS (calculated via Gated SPECT) Stress Image LV EF (%): 78 Stress EDV (mL):46 TID: 1 Stress ESV (mL):10 FUNCTIONAL FINDINGS: There is normal left ventricular systolic function. IMPRESSIONS Myocardial perfusion imaging is normal. Su Diana MD (Electronically Signed) Final Date: 17 July 2024 23:14 S
[2024-07-11] MEDS: regadenoson 0.4 Mg/5 ml Syringe IVP (09:20)
[2024-07-11 09:34] VITALS: BP 118/60; PULSE 93
== END 2024-07-11 07:57 | disposition home or self-care (01) ==
LOC: CDL 07:57
PROVIDERS: PCP Family Medicine; Visit Provider Internal Medicine
DX: R07.9 Chest pain, unspecified (principal)
CPT/HCPCS: 36415; 78452; 93017; 96374; A9500; J2785

== ENCOUNTER 2024-07-17 08:16 | Day surgery (SDC) | payer MEDICARE, SELFPAY ==
[2024-07-17 08:33] VITALS: BP 139/73; PULSE 79; RESP 14; TEMP 36.1; O2SAT 97; BMI 21.0
--- NOTE | 2024-07-17 08:41 | W.PM.OPSFHP ---
Same Day Surgery H&P Indication for Procedure/HPI DATE OF PROCEDURE: July 17, 2024 CHIEF COMPLAINT/INDICATIONFOR SURGICAL PROCEDURE: Need for screening colonoscopy PREOP DIAGNOSIS: Need for screening colonoscopy PLANNED PROCEDURE: Operation Date: 07/17/24 09:40 Proposed Procedures p EGD 58740, 34436, G0121, Z12.11, K22.89(Not Applicable) - Gordon Zavala MD s Colonoscopy(Not Applicable) - Gordon Zavala MD Patient is due for colonoscopy, she also was offered an EGD as there was some thickening the distal esophagus was consistent with a hiatal hernia noted on recent CT of the abdomen. At the moment patient does not want to proceed with an EGD as she is asymptomatic. Medications/Allergies* Home Medications ?Medication ?Instructions ?Recorded ?Confirmed ?Type biotin 5 mg tablet 5 mg PO DAILY 11/02/22 07/15/24 History cranberry 400 mg capsule 400 mg PO DAILY 11/02/22 07/15/24 History multivitamin 1 tab PO DAILY 11/02/22 07/15/24 History trazodone 150 mg tablet 150 mg PO DAILY 10/17/23 07/15/24 History dapagliflozin propanediol 5 mg 5 mg PO DAILY 06/25/24 07/15/24 History tablet (Farxiga) Allergies/Adverse Reactions Allergy/AdvReac Type Severity Reaction Status Date / Time No Known Allergies Allergy Verified 07/15/24 10:00 Pertinent History/Comorbid Conditions* Medical History (Updated 06/25/24 @ 16:14 by Jr Ambriz M.D) Coronary artery disease Prediabetes Hypertension Surgical History (Updated 11/02/22 @ 12:56 by Franklyn Padilla MD) History of tubal ligation History of appendectomy Family History (Updated 10/17/23 @ 08:50 by MAURICE Whitaker) Breast cancer Mother Cancer Social History Smoking and tobacco/nicotine status: former use of tobacco/nicotine Alcohol intake: never Substance/Drug Use: never Adopted: No Caregiver/support person: Yes Lives independently: Yes Household members: spouse Housing: House Pertinent Exam Findings alert, oriented x 3, clear to auscultation bilaterally, regular rate & rhythm and procedure specific exam findings Recommendations Surgery/Procedure today Coding Level of Care Code Acute Code for Chg Fwd
[2024-07-17] MEDS: sodium chloride 0.9% 1,000 ML 30 ML IV (08:47)
--- NOTE | 2024-07-17 09:01 | ANES.PREANE2 ---
Pre-Anesthetic Assessment Height/Weight: Height 1.57 m Weight 52.163 kg Temp Pulse Resp BP Pulse Ox O2 Del Method 97 F L 79 14 139/73 97 Room Air 07/17/24 08:33 07/17/24 08:33 07/17/24 08:33 07/17/24 08:33 07/17/24 08:33 07/17/24 08:33 Preop Diagnosis: Need for screening colonoscopy Operation Date: 07/17/24 09:40 Proposed Procedures p EGD 07397, 24877, G0121, Z12.11, K22.89(Not Applicable) - Gordon Zavala MD s Colonoscopy(Not Applicable) - Gordon Zavala MD Familial anesthetic complications: none Was Beta Jaguar taken within 24 hours: N/A Was Clonidine taken within 24 hours: N/A Last intake: Intake Last Liquid Date 07/16/24 Last Liquid Time 19:30 Last Solid Date 07/15/24 Last Solid Time 16:00 Social No alcohol and No tobacco Exam alert, oriented x 3, clear to auscultation bilaterally and regular rate & rhythm Airway Submandibular: within normal limits Cervical ROM: within normal limits Mallampati: Class II Dentition: partials Pulmonary None reported CV/HEM Hypertension and Myocardial Infarction (Stents x2 1 year ago, taking 81mg aspirin, follows caridology. >4mets) None reported Hepatic None reported GI None reported Metabolic Hyperlipidemia [facility] [place] None reported Neuropsych None reported Anesthetic Plan ASA status: 3 Anesthesia: MAC Risk of > 500 ml blood loss (7ml/kg in children): No Medications/Allergies Home Medications ?Medication ?Instructions ?Recorded ?Confirmed ?Last Taken ?Type biotin 5 mg tablet 5 mg PO DAILY 11/02/22 07/15/24 07/15/24 History cranberry 400 mg capsule 400 mg PO DAILY 11/02/22 07/15/24 07/15/24 History multivitamin 1 tab PO DAILY 11/02/22 07/15/24 07/15/24 History aspirin 81 mg tablet,delayed 81 mg PO DAILY #30 tabs 11/03/22 07/15/24 07/12/24 Rx release atorvastatin 40 mg tablet 40 mg PO BEDTIME #30 tabs 11/03/22 07/15/24 07/15/24 Rx trazodone 150 mg tablet 150 mg PO DAILY 10/17/23 07/15/24 07/15/24 History dapagliflozin propanediol 5 mg 5 mg PO DAILY 06/25/24 07/15/24 07/15/24 History tablet (Farxiga) Allergies Allergy/AdvReac Type Severity Reaction Status Date / Time No Known Allergies Allergy Verified 07/15/24 10:00 Current Medications Generic Name Dose Route Start Last Admin Trade Name Freq PRN Reason Stop Dose Admin Sodium Chloride 1,000 mls @ 30 mls/hr 07/17/24 08:45 07/17/24 08:47 Sodium Chloride 0.9% IV 30 mls/hr .Q24H SULAIMAN Administration PFSH Anesthesia Medical History Coronary artery disease Prediabetes Hypertension Surgical History History of tubal ligation History of appendectomy Family History Mother Breast cancer Other Cancer Social History Smoking and tobacco/nicotine status: former use of tobacco/nicotine Alcohol intake: never Substance/Drug Use: never Adopted: No Caregiver/support person: Yes Lives independently: Yes Household members: spouse Housing: House Data Anesthesia Cardiac Studies: Echocardiogram 11/02/22 Sestamibi Stress Test (Cardiology) 07/11/24
[2024-07-17 09:48] VITALS: BP 99/54; PULSE 75; RESP 17; TEMP 36.3; O2SAT 95
[2024-07-17 10:03] VITALS: BP 126/66; PULSE 77; RESP 16; O2SAT 96
--- NOTE | 2024-07-17 10:30 | ANE.PACU2 ---
Inpatient post-anesthesia follow up: Airway intact: Yes Vital signs: Temperature 97.4 F Pulse Rate 77 Respiratory Rate 16 Blood Pressure 126/66 Pulse Oximetry 96 Oxygen Delivery Me thod Room Air Oxygen Flow Rate Fraction of Inspir ed Oxygen Hydration adequate: Yes Nausea and vomiting: No Pain level: 1 Mental status: Baseline
== END 2024-07-17 10:30 | disposition home or self-care (01) ==
PROVIDERS: PCP Family Medicine; Visit Provider Surgery
PROC: 0DJD8ZZ Inspection of Lower Intestinal Tract, Via Natural or Artificial Opening Endoscopic (ICD-10-PCS; CPT 45378; 2024-07-17 09:40)
DX: Z12.11 Encounter for screening for malignant neoplasm of colon (principal); K57.30 Diverticulosis of large intestine without perforation or abscess without bleeding; K44.9 Diaphragmatic hernia without obstruction or gangrene; Z87.891 Personal history of nicotine dependence; I10 Essential (primary) hypertension; I25.10 Atherosclerotic heart disease of native coronary artery without angina pectoris; R73.03 Prediabetes; Z79.899 Other long term (current) drug therapy
CPT/HCPCS: G0121; J2704; J7030

== ENCOUNTER 2024-12-05 17:49 | Emergency (ER) | payer MEDICARE, SELFPAY ==
--- OUTSIDE RECORDS SUMMARY | 2013-09-05 06:09 | XMS_ITS | Continuity of Care Document ---
Author Organization [facility] Address [address] [place] [address] Phone Care Team Providers Care Cork Tipper Name Role Phone Doroteo ARIZMENDI, Timothy Unavailable Unava ilable Allergies, Adverse Reactions, Alerts Substance Reaction Status Criticality No Known allergies Medications Medication Instructions Dosage Effective Dates (start - stop) Status Comments Flexeril 10 mg tablet take 1 tablet (10MG) by oral route 3 times every day as needed 10 MG - No Longer Active Mobic 15 mg tablet take 1 tablet (15MG) by oral route every day - No Longer Active trazodone 100 mg tablet TAKE ONE TABLET BY MOUTH AT BEDTIME AFTER MEALS 100 MG - No Longer Active Procedures Procedure Date OFFICE/OUTPATIENT VISIT, EST OFFICE/OUTPATIENT VISIT, EST OFFICE/OUTPATIENT VISIT, EST OFFICE/OUTPATIENT VISIT, EST OFFICE/OUTPATIENT VISIT, EST Advance Directives Directive Yes / No Effective Date File Name No Information Encounters Encounter Description Practice Location Reason(s) For Visit Diagnoses Date Provider Providers Copied on Encounter [facility], [address], [place], [id number] , tel:[phone] [facility] No Information 4 Doroteo Aguirre. [address] [place] [address], [id number], [place]. tel:[phone] OFFICE/OUTPA TIENT VISIT, EST [facility], [address], [place], [id number] , tel:[phone] [facility] f/u abdominal pain (chief complaint) Abdominal pain, other specified site 4 No Information [facility], [address] [place] [address], [id number] , [place] tel: [phone] [facility] No Information 4 Doroteo Aguirre. [address] [place] [address], [id number], [place]. tel:[phone] OFFICE/OUTPA TIENT VISIT, [facility], [address] [place] [address], [id number] , [place] tel: [phone] [facility] abdominal pain (chief complaint) Abdominal pain, other specified site 4 No Information [facility], [address] [place] [address], [id number] , [place] tel: [phone] [facility] No Information 4 No Information OFFICE/OUTPA TIENT VISIT, [facility], [address] [place] [address], [id number] , [place] tel: [phone] [facility] back pain (chief complaint) Family history of malignant neoplasm of breastLumbago 3 No Information [facility], [address] [place] [address], [id number] , tel: [phone] [facility] Other and unspecified hyperlipidemiaOthe r anxiety statesLumbago 2 [place]. [address] [place] [address], [id number], [place]. tel:[phone] OFFICE/OUTPA TIENT VISIT, [facility], [address] [place] [address], [id number] , [place] tel: [phone] [facility] No Information 1 No Information OFFICE/OUTPA TIENT VISIT, [facility], [address] [place] [address], [id number] , tel: [phone] [facility] No Information 1 No Information Family History Family Member Type Diagnosis Age At Onset Problem (finding) Family history of breas t cancer Immunizations Vaccine Date Status Comments Td (7 yrs and older) administered Source: Source Unspecified Payers Payer name Insurance type Covered green party ID Authoriza tion(s) No Information Social History Type Description Quantity Date Captured Comments Sex Female Smoking Status No Information Chief Complaint And Reason For Visit No Information Reason For Referral Reason For Referral No Information Plan Of Treatment Date Type Action Status Goal Colonoscopy. Due on due Goal Colonoscopy. Due on due Goal Colonoscopy. Due on due Goal Tdap. Due on due Goal FOBT. Due on due Goal Lipid Panel. Due on due Goal Td vaccine. Due on 14 due Goal PAP. Due on due Goal Influenza vaccine. Due on due Goal H&P. Due on due Goal Breast exam. Due on due Goal Mammogram. Due on 4 due Goal Sigmoidoscopy. Due on due Referral Referred To: Patrick Nieto MD [address] [place] [address]
[address] [place] [phone] Ordered: Referral: Patrick Nieto MD. ordered History Of Present Illness Encounter Date Complaint History Of Prese nt Illness No Information Functional Status Date Functional Assessmen t No Information Instructions Date Instruction Additional Infor mation ROM exercises.. Heating pad (be careful of quinones) Related to Lumbago Assessments Type Assessment Date No Information Patient Care Teams Name Effective Dates (start - stop) Status Members No Information
--- OUTSIDE RECORDS SUMMARY | 2024-01-24 08:15 | XMS_ITS ---
Author Organization [facility], [place] Address [address] [facility] [place] [address] Care Team Providers Care Enterprise Application Developer Name Role Phone Sid Reynoso MD Primary Care Provider TRINI Peterson [phone] REASON FOR VISIT 3-4 mo w/ ua/pvr/ct Encounters Encounter Location Date Provider Diagnosis [facility], [place] [address] [facility] [place] [address] 01/24/2024 TRINI CARR Renal cysts, acquired, bilateral N28.1 ; Microscopic hematuria R31.29 and History of smoking Z87.891 Assessments Encounter Date Diagnosis (ICD Code) Assessment Notes Treatment Notes Treatment Clinical Notes Section Notes 01/24/2024 Renal cysts, acquired, bilateral (ICD-10 - N28.1) 01/24/2024 Microscopic hematuria (ICD-10 - R31.29) 01/24/2024 History of smoking (ICD-10 - Z87.891) Plan Of Treatment No Information Progress Notes * LENROBINFrancoisMangoSylvia ADOB: (74 yo F)Acc No.[id number]:01/24/2024 Progress Notes Patient: Mango ALAMOqueline Alphonso Provider: Alphonso CARR MD :1950 A ge:73 Y S ex:Female Date:01/24/2024 Address:[address] [place] [id number] Pcp:Sid Reynoso MD Subjective: * Chief Complaints: * 1 . 3-4 mo w/ ua/pvr/ct. * HPI: * : Ms. Leyva is a 73yoF patient who was recently referred for bilateral renal masses found incidentally on imaging. PMH of D M, HTN, HLPD, CAD, and OA. S he had noncontrast CT Abdomen with incidental findings of bilateral renal masses. An MRI abdomen was obtained that reported mildly bulbous appearance of the proximal ureters with a 6mm filling defect in the LEFT proximal ureter. MRI report did not mention renal masses. She has a very distant h/o nephrolithiasis passing on her own without surgery. No other urologic history. Denies any gross hematuria, dysuria. No recent or recurrent UTIs. No bothersome OAB or incontinence. She is a former smoker. UA with microscopic hematuria, sent for microscopy which revealed no RBC seen. C T on 09/21/23 s how bilateral renal cyst, R>L. Official report is not done. Here today at interval f/u for symptom reassessment with UA/PVR and CT CT obtained on. * ROS: G eneral / Constitutional: Patient denies c hills, fever, weight loss, good appetite.? E NT: Patient denies n bakari congestionrhinorrhea or epistaxis.? R espiratory: Patient denies c hronic cough, hemoptysis. C ardiovascular: Patient denies s ubsternal chest pain or palpitations, dyspnea with exertion. G astrointestinal: Patient denies c onstipation, rectal bleeding, weight loss, abdominal pain. H ematology: Patient denies e asy bruising, bleeding problems. ? G enitourinary: Patient denies D ocumented in HPI. M usculoskeletal: Patient denies a rthritis / arthralgia, joint stiffness or swelling or redness. N eurologic: Patient denies s eizures, headache, difficulty speaking.? P sychiatric: Patient denies d epressed mood, suicidal thoughts. ? * Medical History: Objective: * Vitals: * Examination: G eneral Examination: General appearance: a lert, pleasant, well-nourished and in no acute distress. Head: n ormocephalic, atraumatic. Eyes: c onjunctiva clear, normal. Neck / thyroid: N trini is supple, no palpable cervical lymphadenopathy. Skin: w ith no suspicious skin lesions, normal skin turgor.? Heart: r egular rate and rhythm without murmurs, gallops, clicks or rubs. Lungs: c lear to auscultation bilaterally. Abdomen: s oft, nontender with normoactive bowel sounds in all four quadrants, No palpable organomegaly. No peritoneal signs. No shifting dullness.. Musculoskeletal: N o clubbing, cyanosis, or edema. No calf tenderness. Free range of motion in all extremities.. Neurologic: N o focal deficits, muscle strength 5/5 in all extremities.. Psych: c ooperative with exam. Assessment: * Assessment: 1. R enal cysts, acquired, bilateral - N28.1 (Primary) 2 . M icroscopic hematuria - R31.29 3 . H istory of smoking - Z87.891 Plan: * Treatment: * Billing Information: * Visit Code: * Procedure Codes: * Electronic signature of AUST IN MD BRUNO on 12/05/2024 at 06:00 PM CDT Sign off status: Pending * Provider: Alphonso CARR MD Date: 0 01/24/2024 Generated for Eber felton/Prakash/Tyeitting on: 0 12/05/2024 06:00 PM CDT History and Physical Notes * HPI (History of Present Illness) Category Sub-Category Detail Notes Category Not es Ms. Leyva is a 73yoF patient who was recently referred for bilateral renal masses found incidentally on imaging. PMH of DM, HTN, HLPD, CAD, and OA. She had noncontrast CT Abdomen with incidental findings of bilateral renal masses. An MRI abdomen was obtained that reported mildly bulbous appearance of the proximal ureters with a 6mm filling defect in the LEFT proximal ureter. MRI report did not mention renal masses. She has a very distant h/o nephrolithiasis passing on her own without surgery. No other urologic history. Denies any gross hematuria, dysuria. No recent or recurrent UTIs. No bothersome OAB or incontinence. She is a former smoker. UA with microscopic hematuria, sent for microscopy which revealed no RBC seen. CT on 09/21/23 show bilateral renal cyst, R>L. Official report is not done. Here today at interval f/u for symptom reassessment with UA/PVR and CT CT obtained on Examination Category Sub-Category Detail Notes Category Not es General Examination General appearance: alert, p leasant, well-nourished and in no acute distress Head: normocephalic, atrau matic Eyes: conjunctiva clear, n ormal Neck / thyroid: Neck is supple, no p alpable cervical lymphadenopathy Heart: regular rate and rhy thm without murmurs, gallops, clicks or rubs Lungs: clear to auscultatio n bilaterally Abdomen: soft, nontender with normoactive bowel sounds in all four quadrants, No palpable organomegaly. No peritoneal signs. No shifting dullness. Neurologic: No focal deficits, m uscle strength 5/5 in all extremities. Skin: with no suspicious s kin lesions, normal skin turgor Musculoskeletal: No clubbing, cyanosi s, or edema. No calf tenderness. Free range of motion in all extremities. Psych: cooperative with exa m
[2024-12-05 17:56] VITALS: BP 114/72; PULSE 98; RESP 16; TEMP 36.7; O2SAT 95; BMI 19.2
--- OUTSIDE RECORDS SUMMARY | 2024-12-05 18:00 | XMS_ITS | Patient Health Record ---
Author Organization [employer] [facility], [place] Address [address] [place] [address] Care Team Providers Care Rebeamer Name Role Phone Sid Reynoso MD Primary Care Provider TRINI Peterson Unavailable [phone] KATY POTTER Unavailable [phone] Allergies No Known Allergies Reason For Referral No Information Medications Medication SIG (Take, Route, Frequency, Duration) Notes Start Date End Date Status Clopidogrel Bisulfate 75 MG 1 tablet Ora lly Once a day 08/29/2023 Active Losartan Potassium 25 MG 1/2 tablet Oral ly Once a day 08/29/2023 Active Atorvastatin Calcium 40 MG 1 tablet Oral ly Once a day 08/29/2023 Active traZODone HCl 100 MG 1 tablet at bedtime Orally Once a day 08/29/2023 Active Aspirin Adult Low Dose 81 MG 1 tablet Orally Once a day 08/29/2023 Active Social History Tobacco Use: Social History Observation Description Date Details (start date - stop date) Former Smoker NA - NA Tobacco Control (Standard) Question Answer Notes Tobacco use: Former smoker How long has it been since you last smoked? Grea ter than 10 years Problems Problem Type SNOMED Code ICD Code Onset Dates Problem Status W/U Status Risk Notes Problem Ureteral mass (N28.89) Active confirmed Encounters Encounter Location Date Provider Diagnosis [facility] [place] [address] [place] [facility] [place] [address] 12/24/2023 KATY POTTER Plan Of Treatment Pending Test Test Name Order Date CT Abd & Pelvis W & [place] contrast [id number] 08/29/2023 BUN 99202 08/29/2023 CREATININE (375) 08/29/2023 Future Test Test Name Order Date CT Abd & Pelvis W & [place] contrast [id number] 11/21/2023 BUN, Creatinine 11/21/2023 Insurance Providers Payer Name Payer Address Payer Phone Subscriber Number Group Number Insured Name Patient Relationship to Insured Coverage Start Date Coverage End Date [facility] [address] [address] [place], [place] [id number] Sylvia Leyva Self - patient is the insured Medical (General) History Medical History History ICD Code renal mass arthritis diabetes hernia CAD HTN hyperlipidemia Surgical History Surgery Date(Month/Year) hernia tubal ligation hysterectomy partial cardiac stents October 2022 Hospitalization History Reason Date(Month/Year) surgery
--- OUTSIDE RECORDS SUMMARY | 2024-12-05 18:00 | XMS_ITS | Clinical Summary ---
Author Organization [facility] [place] Address [address] [place] [address] Care Team Providers Care Senior Enlisted Advisor Name Role Phone Unavailable Primary Care Provider Unavailabl e Social History Tobacco Use Types Packs/Day Years Used Date Smoking Tobacco: Never Assessed Comments Unknown Sex and Gender Information Value Date Recorded Sex Assigned at Not on file Legal Sex Female 2:41 PM CDT Gender Identity Not on file Sexual Orientation Not on file Plan of Treatment Health Maintenance Due Date Last Done Comments DTAP/TDAP/TD VACCINES (1 - Tdap) 1968 COLORECTAL SCREENING 1994 Colorectal Cancer Screening 1994 FIT-DNA Q 3 years 1994 FIT/FOBT Q 1 year 1994 Flex Sig/CT Colonography Q 5 years 1994 PNEUMOCOCCAL VACCINE 50+ YEARS (1 of 1 - PCV) 07/09/19 00 ZOSTER VACCINE (1 of 2) 1999 OSTEOPOROSIS SCREENING 2014 RSV VACCINE (60+ or ) (1 - 1-dose 75+ series) 2024 INFLUENZA VACCINE (#1) 2024 Insurance [facility] [id number]
== END 2024-12-05 18:52 | disposition left against medical advice (07) ==
LOC: ER 17:58
PROVIDERS: Emergency Provider Family Medicine; PCP Family Medicine
DX: Z53.1 Procedure and treatment not carried out because of patient's decision for reasons of belief and group pressure (principal)

== ENCOUNTER → 2025-04-08 15:13 | Outpatient (BNVA) | payer MEDICARE, SELFPAY | PROVIDERS: PCP Family Medicine; Visit Provider Internal Medicine | DX: I25.10 Atherosclerotic heart disease of native coronary artery without angina pectoris (principal); I10 Essential (primary) hypertension; R42 Dizziness and giddiness; Z87.891 Personal history of nicotine dependence | CPT/HCPCS: 99214 ==